=== PATIENT | female | born 2005 | race Caucasian/White ===

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

== ENCOUNTER 2023-05-14 20:31 | Emergency (ER) | payer MEDICAID, SELFPAY ==
--- NOTE | ~2023-05-14 | XR_ITS ---
EXAMINATION: XR ANKLE, LEFT CLINICAL INFORMATION: Fall with pain COMPARISON: None available. TECHNIQUE: AP, lateral, and mortise views of the left ankle. FINDINGS: There is a minimally displaced fracture at the base of the fifth metatarsal. No other abnormalities are seen. XR/XR ankle LT min 3V IMPRESSION: Fracture base of fifth metatarsal.
[2023-05-14 21:32] VITALS: BP 172/96; PULSE 63; O2SAT 98
[2023-05-14 21:37] VITALS: BP 141/81; PULSE 72; RESP 16; TEMP 37.1; O2SAT 99; BMI 57.3
--- NOTE | 2023-05-14 21:59 | ED.LOWEXIN ---
HPI - Extremity Injury (Lower) General Chief Complaint: Extremity Injury, Lower Stated Complaint: L ANKLE TWISTED Time Seen by Provider: 05/14/23 21:48 Source: patient Mode of arrival: ambulatory Limitations: no limitations History of Present Illness HPI Narrative: inversion injury of L foot after missed step no other injuries just occurred no prior injuries to this leg hurts to bear weight no numbness, tingling MD complaint: ankle injury and foot injury Onset (ago): minute(s) (prior to arrival ) Injury: Left: foot Type of Injury: inversion Place: home Severity: mild Relieving factors: immobilization Exacerbating factors: weight bearing and movement Context: other (missed step) Associated symptoms: snap/pop sensation and swelling Other symptoms: none Treatments prior to arrival: cold therapy Related Data Allergies Allergy/AdvReac Type Severity Reaction Status Date / Time amoxicillin Allergy Hives Verified 05/14/23 21:50 shrimp Allergy Hives Verified 05/14/23 21:50 Review of Systems Review of Systems: Constitutional : No Fever, No Chills Cardiovascular : No Chest Pain, No SOB Respiratory : No Cough, No Dyspnea Gastrointestinal : No Nausea, No Vomiting, No Diarrhea, No abdominal Pain Genitourinary : No Dysuria, No Hematuria Musculoskeletal : positive joint pain, No Myalgias, No Joint Swelling Skin : No Skin lacerations, No rash Neuro : No Weakness, No Numbness, No Loss of Consciousness All other systems reviewed and are negative [facility] Past Medical History Attestation statement: The following information was validated with the patient. Medical History Hypertension Social History Social History Alcohol intake: never Smoked in Last 30 Days: No Use of substances other than those prescribed or required for medical reasons: Yes Substance Use Type: Marijuana Advance Directives: No Advance Directives Information Provided: No Patient : No Physical Exam Vital Signs: Vital Signs: Last Vital Signs Temp 98.8 F 05/14/23 21:37 Pulse 72 05/14/23 21:37 Resp 16 05/14/23 21:37 BP 141/81 H 05/14/23 21:37 Pulse Ox 99 05/14/23 21:37 O2 Del Method Room Air 05/14/23 21:37 BMI result Body Mass Index 57.3 Appearance: Alert. Oriented X3. No acute distress. Eyes: Pupils equal, round and reactive to light. ENT: Pharynx normal. Neck: Normal inspection. Neck supple. CVS: Normal heart rate and rhythm. Pulses normal. Respiratory: No respiratory distress. Breath sounds normal. Abdomen: Soft and nontender. Skin: Skin warm and dry. Normal skin color. Normal skin turgor. Extremities: No lower extremity edema. L foot ttp along 5th metatarsal distal NV intact BCR 2+ DP pulse, SILT intact, no prox fibula ttp, mild swelling, superficial abrasion but minor Neuro: Oriented X 3. No motor deficit. No sensory deficit. Medical Decision Making Medical Decision Making MDM Narrative: 17 yo female L foot injury after missing step she is NV intact compartment soft and compressible tissue is intact at this time 5th metatarsal injury noted no prior injuries to this foot - crutches short posterior splint and orthopedics follow up, NWB Differential Diagnosis Differential Diagnoses: The differential diagnosis associated with the presentation includes sprain, strain, fracture Independent Interpretation I performed an independent interpretation of an: Plain X-Ray (5ht metatarsal fracture) Radiology Impression Discussion of test interpretation with radiology: I have reviewed the radiologist's reading. Procedures Orthopedic Splinting/Casting Injury #1: Side: left Lower Extremity Injury Location: foot Lower Extremity Immobilizer: posterior splint Other Orthopedic Equipment: crutches Discharge Plan Discharge Clinical Impression: Fracture of 5th metatarsal Patient Disposition: Home, Self-Care Instructions: Crutch Instructions (ED), Foot Fracture in Adults (ED) Additional Instructions: return for worsening symptoms such as numbness, severe pain, cold blue feet or any other concerns. keep elevated and remember to try to squeeze your calf muscles - non weight bearing until cleared by orthopedics. call for follow up appointment. take tylenol or motrin for pain can alternate Referrals: Get Malloy MD [Physician] - 1 week (call to schedule appointment ) Stand Alone Forms: Work/School Release Interventions: ED Discharge Assessment Last Done: 05/14/23 23:03 Discharge Date/Time: 05/14/23 23:04 Print Language: Mexican
== END 2023-05-14 23:04 | disposition home or self-care (01) ==
PROVIDERS: Emergency Provider Emergency Medicine
DX: S92.352A Displaced fracture of fifth metatarsal bone, left foot, initial encounter for closed fracture (principal); X50.1XXA Overexertion from prolonged static or awkward postures, initial encounter; Y93.89 Activity, other specified; Y92.018 Other place in single-family (private) house as the place of occurrence of the external cause; Y99.9 Unspecified external cause status
CPT/HCPCS: 29515; 73610; 99284

== ENCOUNTER 2023-05-21 08:26 | Outpatient (REF) | payer MEDICAID, SELFPAY ==
--- NOTE | ~2023-05-21 | XR_ITS ---
EXAMINATION: XR FOOT, LEFT CLINICAL INFORMATION: Pain in unspecified foot COMPARISON: None available. TECHNIQUE: AP, lateral, and oblique views of the left foot. FINDINGS: There is mild soft tissue swelling of the dorsum of the forefoot. The bones are intact. No fracture. Alignment is anatomic. Joint spaces are maintained. XR/XR foot LT min 3V IMPRESSION: No bony abnormality.
== END 2023-05-21 08:27 | disposition home or self-care (01) ==
LOC: HO.HOSX 08:26
PROVIDERS: Visit Provider Physician Assistant
DX: S92.355A Nondisplaced fracture of fifth metatarsal bone, left foot, initial encounter for closed fracture (principal)
CPT/HCPCS: 73630; 99204

== ENCOUNTER 2023-05-21 11:01 | Outpatient (AMB) | payer MEDICAID, SELFPAY ==
--- NOTE | 2023-05-21 11:04 | A.OFFVIS_ITS ---
Intake Vital Signs 05/21/23 11:05 Height 5 ft 4 in Weight 333 lb BMI 57.2 Intake Visit Reasons: fc- Fracture of 5th left metatarsal Intake Note: Daisy is a 17 year old female who presents today with her mom for a fracture care appointment for her left 5th metatarsal fx, DOI 05/14/23. Patient reports she slipped on the last step of her home having her to twist her left foot. She states that her pain is a 3/10on the pain scale. Having numbness on her pinky toe. Allergies amoxicillin Allergy (Verified 05/21/23 11:05) Hives shrimp Allergy (Verified 05/21/23 11:05) Hives HPI fc- Fracture of 5th left metatarsal HPI Details 17-year-old female who presents in the office today, as a new patient, for an evaluation of left foot pain. The patient presented to the ED on 05/14/2023 status post missing a step at home causing her to twist her left ankle. X-rays of the left foot were obtained. She was placed in a posterior splint and given crutches. She states she feels it has gotten a little better. She claims her pain is a 3/10 while in the office today. She confirms numbness in the little toe. Patient is accompanied in the office today by a family member. Patient works at [employer]. She states she works on her feet the entire shift. 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 Review of Systems Const All systems reviewed & are unremarkable except as noted in HPI and below Physical Exam Vital Signs: BMI result Body Mass Index 57.2 Const General: cooperative and no acute distress Orientation/consciousness: patient oriented x3 Resp Effort & Inspection: normal respiratory effort and able to speak in complete sentences Cardio Rate: regular rate Peripheral pulses: Peripheral pulses 2+ throughout GI Palpation (GI): Soft to palpation Skin General skin exam: no rashes or lesions noted Lesions: no lesions Rashes: no rashes Neuro General: patient oriented x3 Extrem Other: Left foot: Mild edmea on the lateral aspect of the left foot. Tenderness palpation at the base of the 5th metatarsal at the fracture site location. Office Procedures Fracture Care Fracture Billing Code: Fracture Billing Code Assessment & Plan Assessment & Plan (1) Closed nondisplaced fracture of fifth left metatarsal bone: Code(s): S92.355A - Nondisplaced fracture of fifth metatarsal bone, left foot, initial encounter for closed fracture Plan Ms. Stevenson is a 17-year-old female who presents in the office today, as a new patient, for an evaluation of left foot pain. The patient presented to the ED on 05/14/2023 status post missing a step at home causing her to twist her left ankle. X-rays of the left foot were obtained. She was placed in a posterior splint and given crutches. She states she feels it has gotten a little better. She claims her pain is a 3/10 while in the office today. She confirms numbness in the little toe. Patient works at [employer]. She states she works on her feet the entire shift. The patient will be transitioned to a short walking boot, off the shelf, while in the office today. She may weight bear as tolerated. She can come out of the boot while at home. She was instructed to elevate the foot and ice as much as possilbe. She was given an out of work until follow up. Follow up will be in 2 weeks with repeat x-rays, or sooner if needed. X-rays of the left foot/ which were obtained while in the office today and were reviewed by me, Ally Walters PA-C, redemonstrated a base of the 5th metatarsal fracture. X-rays of the left foot, obtained on 05/14/2023, revealed: Fracture base of fifth metatarsal. Orders: Orders XR foot LT min 3V Today M79.673 - Pain in unspecified foot Patient Instructions: Scribed for Ally Walters PA-C by darrel Pineda scribe, on 05/21/2023 at 11:03 am, EST. Coding Level of Care Code New Pt Level 4 (69682) Diagnoses Closed nondisplaced fracture of fifth left metatarsal bone S92.355A CPT Codes Fracture Care - Fracture Billing Code: Fracture Billing Code ([id number])
[2023-05-21 11:05] VITALS: BMI 57.2
== END 2023-05-21 11:47 | disposition home or self-care (01) ==
PROVIDERS: Visit Provider Physician Assistant
DX: S92.355A Nondisplaced fracture of fifth metatarsal bone, left foot, initial encounter for closed fracture (principal)
CPT/HCPCS: 99204

== ENCOUNTER 2023-06-07 07:32 | Outpatient (REF) | payer MEDICAID, SELFPAY ==
--- NOTE | ~2023-06-07 | XR_ITS ---
EXAMINATION: XR FOOT, LEFT CLINICAL INFORMATION: Pain. COMPARISON: None available. TECHNIQUE: AP, lateral, and oblique views of the left foot. FINDINGS: The bones and soft tissues are normal. No fracture. Alignment is anatomic. Joint spaces are maintained. XR/XR foot LT min 3V IMPRESSION: Normal left foot.
== END 2023-06-07 07:33 | disposition home or self-care (01) ==
LOC: HO.HOSX 07:32
PROVIDERS: Visit Provider Physician Assistant
DX: S92.355D Nondisplaced fracture of fifth metatarsal bone, left foot, subsequent encounter for fracture with routine healing (principal)
CPT/HCPCS: 73630; 99212

== ENCOUNTER 2023-06-07 10:58 | Outpatient (AMB) | payer MEDICAID, SELFPAY ==
--- NOTE | 2023-06-07 11:07 | A.OFFVIS_ITS ---
Intake Vital Signs 06/07/23 11:11 Height 5 ft 4 in Weight 333 lb BMI 57.2 Intake Visit Reasons: OV- left 5th metatarsal fx, DOI 05/14/23 Intake Note: Daisy is a 17 year old female who presents today with her mom for appointment a follow up visit for her left 5th metatarsal fx, DOI 05/14/23. Patient reports no pain or discomfort at the moment. She states some discomfort when she over works it. Allergies amoxicillin Allergy (Verified 06/07/23 11:11) Hives shrimp Allergy (Verified 06/07/23 11:11) Hives HPI OV- left 5th metatarsal fx, DOI 05/14/23 HPI Details 17-year-old female who presents in the office today for a follow up of a left 5th metatarsal fracture, which occurred on 05/14/2023 status post missing a step at home causing her to twist her left ankle. The patient reports no pain or discomfort while in the office today. She states she gets mild discomfort when over working the left foot. Patient works at [employer]. 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 No ecchymosis, erythema, or edema. No tenderness to palpation base of the fifth metatarsal. Full ROM in all planes. NVI. Assessment & Plan Assessment & Plan (1) Closed nondisplaced fracture of fifth left metatarsal bone: Code(s): S92.355A - Nondisplaced fracture of fifth metatarsal bone, left foot, initial encounter for closed fracture Plan Ms. Stevenson is a 17-year-old female who presents in the office today for a follow up of a left 5th metatarsal fracture, which occurred on 05/14/2023 status post missing a step at home causing her to twist her left ankle. The patient r eports no pain or discomfort while in the office today. She states she gets mild discomfort when over working the left foot. Patient works at [employer]. The patient will being to wean out of the walking boot over the next week. She may return to work with the restrictions of the walking boot for the first week. I instructed she should have the use of a stool for the first 2 weeks. 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 Follow up will be in 4 weeks for a ROM check and final x-ray, or sooner if needed. X-rays of the left foot which were obtained while in the office today and were reviewed by me, Ally Walters PA-C, revealed routine healing of a 5th metatarsal fracture. Orders: Orders XR foot LT min 3V Today M79.673 - Pain in unspecified foot Patient Instructions: Scribed for Ally Walters PA-C by Niya Thomas bilingual medical receptionist, on 06/07/2023 at 11:00 am, EST. Coding Level of Care Code Global (81551) Diagnoses Closed nondisplaced fracture of fifth left metatarsal bone S92.355A
[2023-06-07 11:11] VITALS: BMI 57.2
== END 2023-06-07 11:58 | disposition home or self-care (01) ==
PROVIDERS: Visit Provider Physician Assistant
DX: S92.355D Nondisplaced fracture of fifth metatarsal bone, left foot, subsequent encounter for fracture with routine healing (principal)
CPT/HCPCS: 99214

== ENCOUNTER 2023-07-05 10:01 | Outpatient (REF) | payer MEDICAID, SELFPAY | END 2023-07-05 10:02 | disposition home or self-care (01) | LOC: HO.HOSX 10:01 | PROVIDERS: Visit Provider Physician Assistant | DX: S92.355D Nondisplaced fracture of fifth metatarsal bone, left foot, subsequent encounter for fracture with routine healing (principal); X58.XXXD Exposure to other specified factors, subsequent encounter | CPT/HCPCS: 73630; 99212 ==

== ENCOUNTER 2023-07-05 10:15 | Outpatient (AMB) | payer MEDICAID, SELFPAY ==
--- NOTE | 2023-07-05 10:34 | MHC.OFFVIS ---
Intake Vital Signs 07/05/23 10:36 Height 5 ft 4 in Weight 333 lb BMI 57.2 Intake Visit Reasons: OV- left 5th metatarsal fx, DOI 05/14/23 Intake Note: Daisy is a 18 year old female who presents today with her mom for a follow up visit of her left 5th metatarsal fx, DOI 05/14/23. Patient reports off and on discomfort. Patient reports she is feeling better than before. Allergies amoxicillin Allergy (Verified 07/05/23 10:34) Hives shrimp Allergy (Verified 07/05/23 10:34) Hives HPI OV- left 5th metatarsal fx, DOI 05/14/23 HPI Details 18-year-old female who presents in the office today for a follow up of a left 5th metatarsal fracture, which occurred on 05/14/2023 status post missing a step at home causing her to twist her left ankle. The patient reports intermittent discomfort, which increases when ambulating stairs. She states she has been feeling better. 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 No ecchymosis, erythema, or edema. Patient is able to demonstrate dorsiflexion, plantar flexion, pronation and supination. Negative anterior drawer. No tenderness to palpation over the base of the 5th metatarsal at the fracture site. Sensation intact. Pedal Pulse intact. Assessment & Plan Assessment & Plan (1) Closed nondisplaced fracture of fifth left metatarsal bone: Code(s): S92.355A - Nondisplaced fracture of fifth metatarsal bone, left foot, initial encounter for closed fracture Qualifiers: Encounter type: subsequent encounter Fracture healing: with routine healing Qualified Code(s): S92.355D - Nondisplaced fracture of fifth metatarsal bone, left foot, subsequent encounter for fracture with routine healing Plan Ms. Stevenson is a 18-year-old female who presents in the office today for a follow up of a left 5th metatarsal fracture, which occurred on 05/14/2023 status post missing a step at home causing her to twist her left ankle. The patient reports intermittent discomfort, which increases when ambulating stairs. She states she has been feeling better. The patient may return to normal activities as tolerated. Follow up will be PRN, or sooner if needed. X-rays of the left foot obtained while in the office today and reviewed by me, Ally Walters PA-C, revealed a fracture on 5th metatarsal that is healed. Orders: Orders XR foot LT min 3V Today M79.673 - Pain in unspecified foot Patient Instructions: Scribed for Ally Walters PA-C by Niya Thomas medical transcription radiology, on 07/05/2023 at 10:25 am, EST. Coding Level of Care Code Est Pt Level 3 (88845) Diagnoses Closed nondisplaced fracture of fifth metatarsal bone of left foot with routine healing, subsequent encounter S92.355D Encounter type: subsequent encounter Fracture healing: with routine healing
[2023-07-05 10:36] VITALS: BMI 57.2
== END 2023-07-05 10:43 | disposition home or self-care (01) ==
PROVIDERS: Visit Provider Physician Assistant
DX: S92.355D Nondisplaced fracture of fifth metatarsal bone, left foot, subsequent encounter for fracture with routine healing (principal)
CPT/HCPCS: 99213

== ENCOUNTER 2023-08-24 11:13 | Outpatient (REF) | payer MEDICAID, SELFPAY ==
--- NOTE | ~2023-08-24 | XR_ITS ---
EXAMINATION: XR FOOT, LEFT CLINICAL INFORMATION: Pain. COMPARISON: Prior radiographs, most recently 06/27/2023. TECHNIQUE: AP, lateral, and oblique views of the left foot. FINDINGS: Bony alignment and mineralization are normal. A minimal avulsion fragment is again seen arising from the lateral aspect of the cuboid. No dislocation or left ankle joint effusion is seen. Boehler's angle is normal. There is a tiny posterior calcaneal spur. There is mild spurring of the dorsal talus. No focal soft tissue swelling, gas or foreign body is seen. XR/XR foot LT min 3V IMPRESSION: 1. A minimal avulsion fragment again arises from the lateral margin of the cuboid, possibly chronic. 2. There is a tiny posterior calcaneal spur. 3. There is mild degenerative change of the dorsal talus.
== END 2023-08-24 11:14 | disposition home or self-care (01) ==
LOC: HO.HOSX 11:13
PROVIDERS: Visit Provider Physician Assistant
DX: G57.92 Unspecified mononeuropathy of left lower limb (principal)
CPT/HCPCS: 73630; 99212

== ENCOUNTER 2023-08-24 12:45 | Outpatient (AMB) | payer MEDICAID, SELFPAY ==
[2023-08-24 12:58] VITALS: BMI 57.2
--- NOTE | 2023-08-24 12:58 | A.OFFVIS_ITS ---
Intake Vital Signs 08/24/23 12:58 Height 5 ft 4 in Weight 333 lb BMI 57.2 Intake Visit Reasons: OV-left 5th metatarsal fx, DOI 05/14/23 Intake Note: Daisy is a 18 year old female who presents today with her mom for a follow up visit of her left 5th metatarsal fx, DOI 05/14/23. Patient reports she is having a tingling sensation and pain on the lateral aspect of the foot when she is standing for a long time. Allergies amoxicillin Allergy (Verified 08/24/23 13:00) Hives shrimp Allergy (Verified 08/24/23 13:00) Hives HPI OV-left 5th metatarsal fx, DOI 05/14/23 HPI Details 18-year-[facility] a follow up of a left 5th metatarsal fracture, which occurred on 05/14/2023 status post missing a step at home causing her to twist her left ankle. While in the office today the patient reports a tingling sensation and pain on the lateral aspect of the left foot when she is standing for long periods of time. 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 No ecchymosis, erythema, or edema. No tenderness to palpation over the base of the 5th metatarsal. No tenderness to palpation over the medial or lateral malleolus over the SOPHIA or deltoid. Able to performed full dorsiflexion, plantarflexion, pronation, and supination without discomfort. Reports numbness and tingling sensations involving the entire foot on the plantar and dorsal aspect, intermittently. She also reports lower back pain. Assessment & Plan Assessment & Plan (1) Neuropathy of left foot: Code(s): G57.92 - Unspecified mononeuropathy of left lower limb Plan Ms. Stevenson is a 18-year-old female who presents in the office today for a follow up of a left 5th metatarsal fracture, which occurred on 05/14/2023 status post missing a step at home causing her to twist her left ankle. While in the office today the patient reports a tingling sensation and pain on the lateral aspect of the left foot when she is standing for long periods of time. I have placed a referral for the patient to be seen by Physiatry for further evaluation and treatment of possible neuropathy verses lower back complications. Follow up will be PRN with orthopedics, or sooner if needed. X-rays of the left ankle which were obtained while in the office today and were reviewed by me, Ally Walters PA-C, revealed no acute fracture or dislocation. Orders: Orders XR foot LT min 3V Today M79.673 - Pain in unspecified foot Patient Instructions: Scribed for Ally Walters PA-C by Niya Thomas medical claims assistant, on 08/24/2023 at 12:47 pm, EST. Coding Level of Care Code Est Pt Level 3 (17584) Diagnoses Neuropathy of left foot G57.92
== END 2023-08-24 13:16 | disposition home or self-care (01) ==
PROVIDERS: Visit Provider Physician Assistant
DX: G57.92 Unspecified mononeuropathy of left lower limb (principal)
CPT/HCPCS: 99213

== ENCOUNTER 2023-09-24 14:14 | Outpatient (REF) | payer MEDICAID, SELFPAY ==
[2023-09-24 16:32] LABS: Anion Gap 14 (12-20); Blood Urea Nitrogen 10 mg/dL (9-16); Calcium 9.6 mg/dL (8.4-10.2); Carbon Dioxide 25 mmol/L (22-29); Chloride 108 mmol/L (96-108); Estimated Glomerular Filt Rate > 60; Glucose Random 81 mg/dL (60-115); Magnesium 2.4 mg/dL (1.6-2.6); Sodium 143 mmol/L (135-145)
[2023-09-24 17:22] LABS: Erythrocyte Sedimentation Rate 34 MM/HR (0-20)
[2023-09-26 12:03] LABS: Anti Nuclear Antibody Screen NEGATIVE (NEGATIVE)
== END 2023-09-24 14:15 | disposition home or self-care (01) ==
LOC: HO.CHCLDS 14:14
PROVIDERS: Visit Provider Internal Medicine
DX: R53.1 Weakness (principal); R19.7 Diarrhea, unspecified
CPT/HCPCS: 36415; 80048; 83735; 85652; 86038

== ENCOUNTER 2023-09-25 11:03 | Outpatient (REF) | payer MEDICAID, SELFPAY ==
[2023-09-25 13:48] LABS: CDiff Gene PCR NEGATIVE (Negative)
[2023-09-25 13:57] LABS: Adenovirus F 40/41 Not Detected (Not Detect.); Astrovirus Not Detected (Not Detect.); Campylobacter Not Detected (Not Detect.); Cryptosporidium Not Detected (Not Detect.); Cyclospora cayetanensis Not Detected (Not Detect.); E. coli EAEC Not Detected (Not Detect.); E. coli EPEC Not Detected (Not Detect.); E. coli ETEC Not Detected (Not Detect.); E. coli STEC Not Detected (Not Detect.); Entamoeba histolytica Not Detected (Not Detect.); Giardia lamblia Not Detected (Not Detect.); Norovirus GI/GII Not Detected (Not Detect.); Plesiomonas shigelloides Not Detected (Not Detect.); Rotavirus A Not Detected (Not Detect.); Salmonella Not Detected (Not Detect.); Sapovirus Not Detected (Not Detect.); Shigella sp./EIEC Not Detected (Not Detect.); Vibrio Not Detected (Not Detect.); Vibrio Cholerae Not Detected (Not Detect.); Yersinia enterocolitica Not Detected (Not Detect.)
== END 2023-09-25 11:04 | disposition home or self-care (01) ==
LOC: HO.HHCLNP 11:03
PROVIDERS: Visit Provider Emergency Medicine
DX: R19.7 Diarrhea, unspecified (principal)
CPT/HCPCS: 87177; 87209; 87338; 87493; 87507

== ENCOUNTER 2023-10-11 11:16 | Outpatient (AMB) | payer SELFPAY ==
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
[2023-10-11 11:22] VITALS: BMI 54.9
== END 2023-10-11 11:50 | disposition home or self-care (01) ==
PROVIDERS: Visit Provider Physical Medicine & Rehabilitation
DX: R20.2 Paresthesia of skin (principal); M79.18 Myalgia, other site; M54.50 Low back pain, unspecified; G89.29 Other chronic pain
CPT/HCPCS: 99204

== ENCOUNTER 2023-10-11 11:16 | Outpatient (REF) | payer OTHER, SELFPAY ==
[2023-10-13 08:44] LABS: DHEA Sulfate 212 mcg/dL (44-286); Follicle Stimulating Hormone 6.2 mIU/mL; HCG Tumor Marker <5 mIU/mL; Lutenizing Hormone 5.9 mIU/mL; Prolactin 4.8 ng/mL
[2023-10-19 01:13] LABS: Sex Hormone Binding Globulin 19 nmol/L (17-124); Testosterone-Albumin 4.2 g/dL (3.6-5.1); Testosterone-Bioavailable 11.2 ng/dL (0.5-8.5); Testosterone-Free 5.8 pg/mL (0.2-5.0); Testosterone-Total 33 ng/dL (2-45)
== END 2023-10-11 11:17 | disposition home or self-care (01) ==
LOC: HO.LAB 11:16
PROVIDERS: Registered Nurse; Visit Provider Physical Medicine & Rehabilitation
DX: N91.5 Oligomenorrhea, unspecified (principal); L68.0 Hirsutism; R20.2 Paresthesia of skin; M79.18 Myalgia, other site; M54.50 Low back pain, unspecified; G89.29 Other chronic pain
CPT/HCPCS: 36415; 82627; 83001; 83002; 83498; 84146; 84270; 84403; 84443; 84702; 99202

== ENCOUNTER 2023-11-15 16:03 | Outpatient (REF) | payer OTHER, SELFPAY ==
--- NOTE | ~2023-11-15 | US_ITS ---
EXAMINATION: US PELVIS CLINICAL INFORMATION: Irregular menstrual periods, abnormal uterine bleeding. COMPARISON: None available. TECHNIQUE: Ultrasound of the pelvis is performed using a transabdominal transducers along with Doppler. Patient declined transvaginal examination. FINDINGS: Very limited transabdominal examination secondary to patient body habitus and urinary bladder under distention. Patient declined transvaginal examination. The uterus is anteverted measuring 7.7 x 3.3 x 4.2 cm. No discrete uterine mass. The endometrium measures approximately 0.5 cm in thickness, although is not entirely well seen in this examination. Ovaries are symmetric in size with the right ovary measuring 3.4 x 2.8 x 2.6 cm (12.9 mL) and the left ovary measuring 3.6 x 2.5 x 2.6 cm (12.3 mL). No discrete ovarian or adnexal mass, although evaluation is limited as above. No significant amount of free fluid. US/US pelvic and transvaginal IMPRESSION: 1. Very limited examination as above. 2. No definite acute sonographic abnormalities. Consider further evaluation as clinically warranted.
== END 2023-11-15 16:04 | disposition home or self-care (01) ==
LOC: HO.US 16:03
PROVIDERS: Visit Provider Registered Nurse
DX: N95.1 Menopausal and female climacteric states (principal)
CPT/HCPCS: 76830; 76856

== ENCOUNTER 2023-11-27 08:08 | Outpatient (REF) | payer OTHER, SELFPAY ==
[2023-11-27 09:14] LABS: Estimated Average Glucose 85 mg/dL; Hemoglobin A1c % 4.6 % (<6.0)
[2023-11-27 09:56] LABS: Cortisol Random < 1.0 ug/dL
[2023-12-03 09:58] LABS: Aldosterone/Renin Ratio 2.9 Ratio (0.9-28.9); Plasma Renin Activity 1.02 ng/mL/h (0.25-5.82)
== END 2023-11-27 08:09 | disposition home or self-care (01) ==
LOC: HO.LAB 08:08
PROVIDERS: PCP Registered Nurse; Visit Provider Registered Nurse
DX: N91.3 Primary oligomenorrhea (principal)
CPT/HCPCS: 36415; 82088; 82533; 83036

== ENCOUNTER 2024-01-09 11:39 | Outpatient (REF) | payer OTHER, SELFPAY | END 2024-01-09 11:40 | disposition home or self-care (01) | LOC: HO.HHCL 11:39 | PROVIDERS: Visit Provider Emergency Medicine | DX: Z13.89 Encounter for screening for other disorder (principal) ==

== ENCOUNTER 2024-01-10 11:34 | Outpatient (REF) | payer OTHER, SELFPAY | END 2024-01-10 11:35 | disposition home or self-care (01) | LOC: HO.HHCLNP 11:34 | PROVIDERS: Visit Provider Emergency Medicine | DX: A04.8 Other specified bacterial intestinal infections (principal) | CPT/HCPCS: 87338 ==

== ENCOUNTER 2024-01-22 07:33 | Outpatient (REF) | payer OTHER, SELFPAY ==
--- NOTE | ~2024-01-22 | CT_ITS ---
EXAMINATION: CT head/brain wo IV con CLINICAL INFORMATION: Reason for Exam recurrent headaches, current diffuse headache started 2 days ago. COMPARISON: None. TECHNIQUE: Contiguous axial imaging was performed from the skull base to vertex without intravenous contrast. Sagittal and coronal reformatted images were obtained. This CT examination was performed using dose optimization techniques as appropriate, variously including the following: * Automated exposure control * Adjustment of mA and/or kV according to patient size (this includes techniques or standardized protocols for targeted exams where dose is matched to indication/reason for exam; i.e. extremities or head) Use of iterative reconstruction technique DLP: 952 mGy-cm FINDINGS: No acute osseous or soft tissue abnormality. The mastoid air cells and visualized portions of the paranasal sinuses are well aerated. There is no evidence of acute intracranial hemorrhage or territorial infarction. No abnormal mass effect or midline shift is seen. Dumont to white matter differentiation is well preserved. No extra-axial fluid collections are identified. No hydrocephalus. No significant volume loss. There is no abnormal attenuation within the brain parenchyma. CT/CT head/brain wo IV con IMPRESSION: No acute intracranial abnormality including hemorrhage, mass effect, hydrocephalus, or acute territorial edematous infarction.
== END 2024-01-22 07:34 | disposition home or self-care (01) ==
LOC: HO.CT 07:33
PROVIDERS: PCP Registered Nurse; Visit Provider Emergency Medicine
DX: R51.9 Headache, unspecified (principal)
CPT/HCPCS: 70450

== ENCOUNTER 2024-07-31 15:12 | Outpatient (REF) | payer OTHER, SELFPAY ==
[2024-07-31 17:02] LABS: MANUAL DIFF FLAG NO
[2024-07-31 17:08] LABS: Basophils Absolute Auto 0.1 X10*3/uL (0.0-0.2); Basophils Percent Auto 1.1 % (0-2); Eosinophils Absolute Auto 0.1 X10*3/uL (0.0-0.4); Eosinophils Percent Auto 0.7 % (0-4); Imm Gran Abs Auto 0.03 X10*3/uL (0.00-0.03); Imm Gran Pct Auto 0.3 % (0.0-0.4); Lymphocytes Percent Auto 31.2 % (20-40); Mean Corpuscular HGB Conc 33.3 g/dl (31.0-35.0); Mean Corpuscular Hemoglobin 29.4 pg (27.0-33.0); Mean Corpuscular Volume 88.2 fL (80.0-98.0); Monocytes Absolute Auto 0.5 X10*3/uL (0.1-1.2); Monocytes Percent Auto 5.3 % (2-11); Neutrophils Absolute Auto 5.9 x10*3/uL (2.0-8.3); Neutrophils Percent Auto 61.4 % (45-73); Platelet Count 321 X10*3/uL (160-400); Red Blood Count 4.42 X10*6/uL (4.20-5.50); Red Cell Distribution Width 12.5 % (11.0-16.0); White Blood Count 9.6 X10*3/uL (4.8-10.8)
[2024-07-31 17:39] LABS: Alanine Aminotransferase 17 U/L (0-31); Albumin Level 4.3 g/dL (3.5-5.0); Alkaline Phosphatase 78 U/L (39-117); Anion Gap 12 (12-20); Aspartate Amino Transferase 28 U/L (5-31); Bilirubin Total 0.4 mg/dL (0.0-1.0); Blood Urea Nitrogen 13 mg/dL (9-16); Calcium 9.7 mg/dL (8.4-10.2); Carbon Dioxide 25 mmol/L (22-29); Chloride 108 mmol/L (96-108); Cholesterol 157 mg/dL (<200); Estimated Glomerular Filt Rate > 60; Glucose Random 84 mg/dL (60-115); HDL Cholesterol 46 mg/dL (>40); LDL Cholesterol Calculated 86 mg/dL (<100); Potassium 4.2 mmol/L (3.3-5.1); Sodium 141 mmol/L (135-145); Total Protein 7.6 g/dL (6.5-8.0); Triglycerides 129 mg/dL (<150)
[2024-07-31 17:41] LABS: Estimated Average Glucose 91 mg/dL; Hemoglobin A1C 125.9906 umol/L; Hemoglobin A1c % 4.8 % (<6.0); Total Hemoglobin (HGBA1C) 4300.5849 umol/L
[2024-07-31 17:46] LABS: TSH reflex Free T4 0.94 uIU/mL (0.32-4.0)
== END 2024-07-31 15:13 | disposition home or self-care (01) ==
LOC: HO.HHCL 15:12
PROVIDERS: Visit Provider Nurse Practitioner Family
DX: Z00.00 Encounter for general adult medical examination without abnormal findings (principal)
CPT/HCPCS: 36415; 80053; 80061; 83036; 84443; 85025

== ENCOUNTER 2025-05-24 15:20 | Emergency (ER) | payer MEDICAID, SELFPAY ==
[2025-05-24 15:26] VITALS: BP 142/74; PULSE 67; RESP 17; TEMP 36.5; O2SAT 97; BMI 50.1
--- NOTE | 2025-05-24 15:27 | ED.GENADULT ---
HPI - General Adult General Chief complaint: General Medical Stated complaint: abd & neck pain Related Data Home Medications ?Medication ?Instructions ?Recorded ?Confirmed ibuprofen 800 mg tablet 800 mg PO Q8H PRN pain 05/21/23 bismuth subsalicylate 262 mg 524 mg PO Q30M PRN 10/11/23 tablet ([place] Bismuth) metronidazole 250 mg tablet 250 mg PO TID 10/11/23 Allergies Allergy/AdvReac Type Severity Reaction Status Date / Time amoxicillin Allergy Hives Verified 05/24/25 15:29 shrimp Allergy Hives Verified 05/24/25 15:29 [facility] Past Medical History Medical History Hypertension Social History Social History Alcohol intake: never Substance Use Type: Marijuana Advance Directives: No Advance Directives Information Provided: No Do you have a plan to hurt others: No Plan Current occupational status: employed 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 Please refer to detailed history, exam, evaluation, and management by primary provider. Abdominal pain, nausea sore throat. No sick contacts. JS Medical Decision Making Lab Data 05/24/25 15:45 05/24/25 15:45 Labs: Lab Results 05/24/25 Range/Units 15:45 WBC 9.2 (4.8-10.8) X10*3/uL RBC 4.13 L (4.20-5.50) X10*6/uL Hgb 12.2 (12.0-16.0) g/dl Hct 36.1 L (37.0-47.0) % MCV 87.4 (80.0-98.0) fL MCH 29.5 (27.0-33.0) pg MCHC 33.8 (31.0-35.0) g/dl RDW 12.9 (11.0-16.0) % Plt Count 265 (160-400) X10*3/uL MPV 10.5 (9.4-12.3) fL Immature Gran % (Auto) 0.1 (0.0-0.4) % Neut % (Auto) 62.4 (45-73) % Lymph % (Auto) 30.3 (20-40) % [place] % (Auto) 6.0 (2-11) % Eos % (Auto) 0.3 (0-4) % Baso % (Auto) 0.9 (0-2) % Lymph # (Auto) 2.8 (1.2-4.9) X10*3/uL [place] # (Auto) 0.6 (0.1-1.2) X10*3/uL Eos # (Auto) 0.0 (0.0-0.4) X10*3/uL Baso # (Auto) 0.1 (0.0-0.2) X10*3/uL Abs Immat Gran (auto) 0.01 (0.00-0.03) X10*3/uL Absolute Neuts (auto) 5.7 (2.0-8.3) x10*3/uL Absolute Nucleated RBC 0.000 (0.0-0.012) X10*3/uL Nucleated RBC % (auto) 0.0 (0.0-0.2) /100WBC Sodium 144 (135-145) mmol/L Potassium 3.8 (3.3-5.1) mmol/L Chloride 110 H (96-108) mmol/L Carbon Dioxide 25 (22-29) mmol/L Anion Gap 13 (12-20) BUN 11 (9-16) mg/dL Creatinine 0.70 (0.5-1.4) mg/dL Estim Creat Clear Calc 172.2 Estimated GFR > 60 Random Glucose 87 (60-115) mg/dL Calcium 9.4 (8.4-10.2) mg/dL Total Bilirubin 0.7 (0.0-1.0) mg/dL AST 29 (5-31) U/L ALT 39 H (0-31) U/L Alkaline Phosphatase 78 (39-117) U/L Total Protein 6.8 (6.5-8.0) g/dL Albumin 4.4 (3.5-5.0) g/dL Lipase 20 (8-78) U/L Beta HCG, Quant < 2 mIU/mL Influenza Type A (PCR) NEGATIVE (Negative) Influenza Type B (PCR) NEGATIVE (Negative) RSV RNA Qual (PCR) NEGATIVE (Negative) SARS-CoV-2 RNA (RT-PCR) NEGATIVE (Negative) S. pyogenes GrpA IGOR Negative (Negative) Discharge Plan Discharge Clinical Impression: Abdominal pain Patient Disposition: Left W/O Completing Treatment Prescriptions: No Action ibuprofen 800 mg tablet 800 mg PO Q8H PRN (Reason: pain) metronidazole 250 mg tablet 250 mg PO TID [place] Bismuth 262 mg tablet 524 mg PO Q30M PRN Rx Instructions: do not exceed 8 doses in a 24 hour period Discharge Date/Time: 05/24/25 18:25
[2025-05-24 15:50] LABS: MANUAL DIFF FLAG NO
[2025-05-24 15:59] LABS: Hematocrit 36.1 % (37.0-47.0); Hemoglobin 12.2 g/dl (12.0-16.0); Imm Gran Abs Auto 0.01 X10*3/uL (0.00-0.03); Imm Gran Pct Auto 0.1 % (0.0-0.4); Lymphocytes Absolute Auto 2.8 X10*3/uL (1.2-4.9); Mean Corpuscular HGB Conc 33.8 g/dl (31.0-35.0); Mean Corpuscular Hemoglobin 29.5 pg (27.0-33.0); Mean Corpuscular Volume 87.4 fL (80.0-98.0); NRBC Abs Auto 0.000 X10*3/uL (0.0-0.012); NRBC Pct Auto 0.0 /100WBC (0.0-0.2); Platelet Count 265 X10*3/uL (160-400); Red Blood Count 4.13 X10*6/uL (4.20-5.50); White Blood Count 9.2 X10*3/uL (4.8-10.8)
[2025-05-24 16:03] LABS: IDNOW Serial# 55D5AD1C; Strep A Nucleic Acid Negative (Negative)
[2025-05-24 16:09] LABS: Alanine Aminotransferase 39 U/L (0-31); Albumin Level 4.4 g/dL (3.5-5.0); Alkaline Phosphatase 78 U/L (39-117); Anion Gap 13 (12-20); Aspartate Amino Transferase 29 U/L (5-31); Blood Urea Nitrogen 11 mg/dL (9-16); Calcium 9.4 mg/dL (8.4-10.2); Carbon Dioxide 25 mmol/L (22-29); Chloride 110 mmol/L (96-108); Creatinine Clr Calc Pharmacy 172.2; Estimated Glomerular Filt Rate > 60; Lipase 20 U/L (8-78); Potassium 3.8 mmol/L (3.3-5.1); Sodium 144 mmol/L (135-145); Total Protein 6.8 g/dL (6.5-8.0)
[2025-05-24 16:31] LABS: Resp Syncy Virus RNA Qual PCR NEGATIVE (Negative); SARS COV2 PCR INHOUSE NEGATIVE (Negative)
--- OUTSIDE RECORDS SUMMARY | 2025-05-24 17:38 | XMS_ITS | Clinical Summary ---
Author Organization [facility] Address [address] [place] [address] Phone Care Team Providers Care Neurology Technician Name Role Phone Kristofer Elmsford Primary Care Provider Allergies Active Allergy Reactions Criticality Noted Date Comments Amoxicillin Hives Medium 11/05/2024 Penicillins Hives Medium 11/05/2024 Shrimp Medium 11/04/2024 HIVES Medications omeprazole (PriLOSEC) [address] capsule Take 1 capsule (20 mg total) by mouth 1 (one) time each day for 14 days. Do not crush or chew. 14 each 04/10/2025 04/24/20 Active Problems Problem Noted Date Diagnosed Date Calculus of gallbladder with out cholecystitis without obstruction 02/06/2025 Encounters Date Type Department Care Team Description 04/10/2025 10:20 AM EDT - 04/10/2025 4:02 PM EDT Emergency [facility] Emergency [address] [place] [phone] Dakota Kenyon MD Nausea (Primary Dx) Discharge Disposition: Left Against Medical Advice 03/24/2025 1:00 PM EDT Office Visit General Surgery [facility] [address] [place] [phone] Yaw Guidry MD Calculus of gallbladder without cholecystitis without obstruction (Primary Dx) 03/22/2025 10:26 PM EDT - 03/23/2025 1:56 AM EDT Emergency [facility] Emergency [address] [place] [address] Acute nonintractable headache, unspecified headache type (Primary Dx); Dysuria Discharge Disposition: Home or Self Care 03/16/2025 11:45 AM EDT - 03/16/2025 1:30 PM EDT Surgery [facility] Main OR [address] [place] [address] Yaw Guidry MD LAPAROSCOPIC CHOLECYSTECTOMY [94309 (CPT )] 03/16/2025 11:34 AM EDT Anesthesia Event [facility] OR [address] [place] [phone] Jersey Lopez DO 03/16/2025 9:52 AM EDT - 03/16/2025 4:08 PM EDT Hospital Encounter [facility] Main OR [address] [place] [phone] Yaw Guidry MD Calculus of gallbladder without cholecystitis without obstruction Discharge Disposition: Home or Self Care 03/14/2025 10:00 AM EDT - 03/14/2025 2:30 PM EDT Emergency [facility] Emergency [address] [place] [address] Maria Del Rosario Moon MD Gallstones (Primary Dx) Discharge Disposition: Home or Self Care from Last 3 Months Medical History Medical History Date Comments Asthma as child/ no inh nayeli Hypertension Morbid obesity with body mas s index (BMI) of 50.0 to 59.9 in adult ([facility] V24, [facility] V28) Social History Tobacco Use Types Packs/Day Years Used Date Smoking Tobacco: Never Smokeless Tobacco: Never Tobacco Cessation:Counseling Given: Not Answered Alcohol Use Standard Drinks/Week Comments Never 0 (1 standard drink = 0.6 oz pur e alcohol) Comments No Sex and Gender Information Value Date Recorded Sex Assigned at Female 01/25/2025 1:43 PM EDT Legal Sex Female 10:42 AM EST Gender Identity Female 01/25/2025 1:43 PM EDT Sexual Orientation Straight 01/25/2025 1: 43 PM EDT Obstetrics History Last Filed Vital Signs Vital Sign Reading Time Taken Comments Blood Pressure 111/64 04/10/2025 2:11 PM EDT Pulse 64 04/10/2025 2:11 PM EDT Temperature 37.3 C (99.1 F) 04/10/2025 2:11 PM EDT Respiratory Rate 18 04/10/2025 2:11 PM EDT Oxygen Saturation 98% 04/10/2025 2:11 PM EDT Inhaled Oxygen Concentration - - Weight 141 kg (310 lb 8 oz) 04/10/2025 9:21 AM E DT Height 162.6 cm (5' 4 ) 04/10/2025 9:21 AM EDT Body Mass Index 53.3 04/10/2025 9:21 AM EDT Plan of Treatment Health Maintenance Due Date Last Done Comments Gonorrhea/Chlamydia Screening 2003 Meningococcal B Vaccine (1 of 2 - Standard) 2019 HIV Screening 09/11/2022 Hepatitis C Screening 09/11/2022 Social Influencers of Health Screening 09/11/2022 COVID-19 Vaccine ( season) 2024 10/20/2021, 02/28/2021, 02/07/2021 Cervical Cancer Screening: Pap Smear 2024 Depression Screening 10/08/2024 Influenza Vaccine (#1) 2025 , 07/19/2022, 07/14/2020, Additional history exists Annual Well Child Visit (3-21 years old) 07/29/2025 07/29/2024 Hypertension/CHF/CAD Annual BMP Blood Test 04/10/2026 04/10/2025, 03/22/2025, 03/14/2025, Additional history exists Cholesterol Screening (Lipid Panel) 07/31/2029 07/31/2024 DTaP,Tdap,and Td Vaccines (8 - Td or Tdap) 06/21/2032 06/21/2022, 12/29/2014, 05/11/2008, Additional history exists Hepatitis B Vaccines Completed 01/15/2004, 2003, 2003, Additional history exists HIB Vaccines Completed 12/13/2004, 06/2004, 2003, Additional history exists Pneumococcal Vaccine: Pediatrics (0 to 5 Years) and At-Risk Patients (6 to 49 Years) Completed 12/13/2004, 04/20/2004, 2003, Additional history exists MMR Vaccines Completed 02/27/2007, 07/26/2004 Varicella Vaccines Completed 02/27/2007, 07/26/2004 IPV Vaccines Completed 05/11/2008, 04/0 06/2004, 2003, Additional history exists Hepatitis A Vaccines Completed 07/26/2010, 05/11/20 08 HPV Vaccines Completed 07/06/2015, 02/06, 12/29/2014 Meningococcal ACWY Vaccine Completed 12/08/2019, RSV Immunization Patients Under 20 months Aged Out No longer eligible based on patient's age to complete this topic Procedures Procedure Name Priority Date/Time Associated Diagnosis Comments US ABDOMEN LIMITED STAT 04/10/2025 1:56 PM EDT POC , URINE DIAGNOSTIC STAT 04/10/2025 9:59 AM EDT CBC WITH AUTO DIFFERENTIAL STAT 04/10/2025 9:50 AM EDT COMPREHENSIVE METABOLIC PANEL STAT 04/10/2025 9:50 AM EDT CBC AND DIFFERENTIAL STAT 04/10/2025 9:50 AM EDT DUMONT URINE CULTURE TUBE STAT 04/10/2025 9:49 AM EDT URINALYSIS WITH REFLEX MICROSCOPIC AND CULTURE STAT 04/10/2025 9:49 AM EDT URINALYSIS WITH REFLEX MICROSCOPIC AND CULTURE STAT 04/10/2025 9:49 AM EDT [id number], RSV, FLU A AND B QUALITATIVE RT-PCR, INTERNAL LAB STAT 04/10/2025 9:42 AM EDT RESPIRATORY VIRUS PANEL MOLECULAR STUDY STAT 03/23/2025 12:02 AM EDT POC , URINE DIAGNOSTIC STAT 03/22/2025 10:51 PM EDT DUMONT URINE CULTURE TUBE STAT 03/22/2025 10:50 PM EDT URINALYSIS WITH REFLEX MICROSCOPIC AND CULTURE STAT 03/22/2025 10:50 PM EDT URINALYSIS WITH REFLEX MICROSCOPIC AND CULTURE STAT 03/22/2025 10:50 PM EDT CULTURE URINE STAT 03/22/2025 10:50 PM EDT CULTURE BLOOD STAT 03/22/2025 9:21 PM EDT CBC WITH AUTO DIFFERENTIAL STAT 03/22/2025 9:16 PM EDT LACTATE, WITH REFLEX STAT 03/22/2025 9:16 PM EDT LIPASE STAT 03/22/2025 9:16 PM EDT MAGNESIUM STAT 03/22/2025 9:16 PM EDT COMPREHENSIVE METABOLIC PANEL STAT 03/22/2025 9:16 PM EDT CBC AND DIFFERENTIAL STAT 03/22/2025 9:16 PM EDT CULTURE BLOOD STAT 03/22/2025 9:16 PM EDT OXYGEN THERAPY, ADULT Routine 03/16/2025 12:58 PM EDT TISSUE EXAM Routine 03/16/2025 12:27 PM EDT Calculus of gallbladder without cholecystitis without obstruction TH AN ENDOTRACHEAL(NO CHARGE) Routine 03/16/2025 11:48 AM EDT [place] LAPAROSCOPY SURGICAL CHOLECYSTECTOMY 03/16/2025 11:34 AM EDT Calculus of gallbladder without cholecystitis without obstruction Special Needs Laparoscopic cholecystectomy ? Open - asking 75 minutes for this case US ABDOMEN LIMITED STAT 03/14/2025 12:29 PM EDT LIPASE STAT 03/14/2025 12:05 PM EDT COMPREHENSIVE METABOLIC PANEL STAT 03/14/2025 12:05 PM EDT POC , URINE DIAGNOSTIC STAT 03/14/2025 12:04 PM EDT LACTATE, WITH REFLEX STAT 03/14/2025 10:23 AM EDT CBC WITH AUTO DIFFERENTIAL STAT 03/14/2025 10:19 AM EDT CBC AND DIFFERENTIAL STAT 03/14/2025 10:19 AM EDT from Last 3 Months Results * US Abdomen Limited (04/10/2025 1:56 PM EDT) Only the most recent of2 resultswithin the time period is included. Anatomical Region Laterality Modality Body Ultrasound 04/10/2025 2:10 PM EDT Impressions 04/10/2025 2:11 PM EDT 1. NO ACUTE FINDINGS. -------- FINAL REPORT -------- Dictated By: Bishop Cartagena Dictated Date: 04/10/2025 14:10 ET Assigned Physician: Bishop Cartagena Reviewed and Electronically Signed By: Bishop Cartagena Signed Date: 04/10/2025 14:11 ET Workstation ID: [id number] Transcribed By: Self Edit Transcribed Date: 04/10/2025 14:10 ET Narrative 04/10/2025 2:11 PM EDT Exam: US ABDOMEN LIMITED Date of Study: 04/10/2025 1:35 PM CLINICAL INFORMATION: pain TECHNIQUE: Real-time ultrasound scanning of the region of interest performed by the bi data modeler. Pharmacy District Manager static images and video clips are submitted for review. FINDINGS: IVC is unremarkable. Visualized pancreas is unremarkable. The liver measures 18.3 cm without visible mass. Normal directional flow within the portal vein. Status post cholecystectomy. The common bile duct measures 5 mm. There is absent sonographic Zuniga's sign. Right kidney measures 10.5 cm without evidence for mass or hydronephrosis. No ascites Procedure Note Bishop Cartagena MD - 04/10/2025 Exam: US ABDOMEN LIMITED Date of Study: 04/10/2025 1:35 PM CLINICAL INFORMATION: pain TECHNIQUE: Real-time ultrasound scanning of the region of interestperformed by the bi data modeler. Pharmacy District Manager static images and video clipsare submitted for review. FINDINGS: IVC is unremarkable. Visualized pancreas is unremarkable. The livermeasures 18.3 cm without visible mass. Normal directional flow within theportal vein. Status post cholecystectomy. The common bile duct measures5 mm. There is absent sonographic Zuniga's sign. Right kidney [id number] cm without evidence for mass or hydronephrosis. No ascites IMPRESSION: 1. NO ACUTE FINDINGS. -------- FINAL REPORT -------- Dictated By: Bishop Cartagena Dictated Date: 04/10/2025 14:10 ET Assigned Physician: Bishop Cartagena Reviewed and Electronically Signed By: Bishop Cartagena Signed Date: 04/10/2025 14:11 ET Workstation ID: [id number] Transcribed By: Self Edit Transcribed Date: 04/10/2025 14:10 ET us Dakota Kenyon MD IMG US PROCEDURES Final Result * POC , urine manually resulted (04/10/2025 9:59 AM EDT) Only the most recent of3 resultswithin the time period is included. HCG, Ur POC Negative Negative Urine Urine specimen obtained by clean catch procedure / Unknown 04/10/2025 9:59 AM EDT us Tyrel Bagley DO POINT OF CARE TEST ENTER/EDIT ORDERABLES Final Result * (ABNORMAL) CBC auto differential (04/10/2025 9:50 AM EDT) Only the most recent of3 resultswithin the time period is included. WBC 7.3 4.8 - 10.8 K/[facility] LAB HEMETOLOGY METHOD 04/10/2025 10:05 AM [facility] RBC 4.10 3.80 - 4.80 M/mcL LAB HEMETOLOGY METHOD 04/10/2025 10:05 AM [facility] Hemoglobin 11.8 11.5 - 16.0 g/dL LAB HEMETOLOGY METHOD 04/10/2025 10:05 AM [facility] Hematocrit 37.0 35.0 - 47.0 % LAB HEMETOLOGY METHOD 04/10/2025 10:05 AM [facility] MCV 90.9 79.0 - 98.0 FL LAB HEMETOLOGY METHOD 04/10/2025 10:05 AM [facility] MCH 29.0 27.0 - 32.0 pcg LAB HEMETOLOGY METHOD 04/10/2025 10:05 AM [facility] MCHC 31.9(L) 32.0 - 37.0 g/dL LAB HEMETOLOGY METHOD 04/10/2025 10:05 AM [facility] RDW 13.0 11.0 - 15.0 % LAB HEMETOLOGY METHOD 04/10/2025 10:05 AM [facility] Platelets 323 130 - 400 K/mcL LAB HEMETOLOGY METHOD 04/10/2025 10:05 AM [facility] MPV 10.4 7.0 - 11.0 FL LAB HEMETOLOGY METHOD 04/10/2025 10:05 AM [facility] NRBC 0.0 <1.0 % LAB HEMETOLOGY METHOD 04/10/2025 10:05 AM [facility] NRBC Absolute 0.00 <0.10 K/mcL LAB HEMETOLOGY METHOD 04/10/2025 10:05 AM [facility] Neutrophils Relative 59.9 % LAB HEMETOLOGY METHOD 04/10/2025 10:05 AM [facility] Lymphocytes Relative 32.1 % LAB HEMETOLOGY METHOD 04/10/2025 10:05 AM [facility] Monocytes Relative 6.4 % LAB HEMETOLOGY METHOD 04/10/2025 10:05 AM [facility] Eosinophils Relative 0.5 % LAB HEMETOLOGY METHOD 04/10/2025 10:05 AM [facility] Basophils Relative 1.0 % LAB HEMETOLOGY METHOD 04/10/2025 10:05 AM [facility] Immature Granulocytes Relative 0.1 % LAB HEMETOLOGY METHOD 04/10/2025 10:05 AM [facility] Neutrophils Absolute 4.36 1.50 - 7.00 K/mcL LAB HEMETOLOGY METHOD 04/10/2025 10:05 AM [facility] Lymphocytes Absolute 2.34 1.00 - 5.00 K/mcL LAB HEMETOLOGY METHOD 04/10/2025 10:05 AM [facility] Monocytes Absolute 0.47 0.20 - 1.00 K/mcL LAB HEMETOLOGY METHOD 04/10/2025 10:05 AM [facility] Eosinophils Absolute 0.04 0.00 - 0.50 K/mcL LAB HEMETOLOGY METHOD 04/10/2025 10:05 AM [facility] Basophils Absolute 0.07 0.00 - 0.20 K/mcL LAB HEMETOLOGY METHOD 04/10/2025 10:05 AM [facility] Immature Granulocytes Absolute 0.01 0.00 - 0.03 K/mcL LAB HEMETOLOGY METHOD 04/10/2025 10:05 AM [facility] Blood Venous blood specimen / Unknown Venipuncture / Unknown 04/10/2025 9:50 AM EDT 04/10/2025 10:01 AM EDT Tyrel Bagley DO LAB BLOOD ORDERABLES Final Res ult [facility] [address] [place] [address], [place] [phone] * (ABNORMAL) Comprehensive metabolic panel (04/10/2025 9:50 AM EDT) Only the most recent of3 resultswithin the time period is included. Sodium 141 133 - 145 mmol/L LAB CHEMISTRY METHOD 04/10/2025 10:39 AM [facility] Potassium 4.3 3.5 - 5.5 mmol/L LAB CHEMISTRY METHOD 04/10/2025 10:39 AM [facility] Chloride 111(H) 96 - 110 mmol/L LAB CHEMISTRY METHOD 04/10/2025 10:39 AM [facility] CO2 25 21 - 32 mmol/L LAB CHEMISTRY METHOD 04/10/2025 10:39 AM [facility] Anion Gap 5 3 - 11 LAB CHEMISTRY METHOD 04/10/2025 10:39 AM [facility] Glucose 97 70 - 100 mg/dL LAB CHEMISTRY METHOD 04/10/2025 10:39 AM [facility] BUN 16 5 - 25 mg/dL LAB CHEMISTRY METHOD 04/10/2025 10:39 AM [facility] Creatinine 0.71 0.50 - 1.10 mg/dL LAB CHEMISTRY METHOD 04/10/2025 10:39 AM [facility] eGFR 124 >=60 mL/min/1. 73m2 LAB CHEMISTRY METHOD 04/10/2025 10:39 AM [facility] Comment:Calculation based on the Chronic Kidney Disease Epidemiology Collaboration (CKD-EPI) equation refit without adjustment for race. BUN/Creatinine Ratio 22.5 LAB CHEMISTRY METHOD 04/10/2025 10:39 AM [facility] Calcium 8.9 8.5 - 10.5 mg/dL LAB CHEMISTRY METHOD 04/10/2025 10:39 AM [facility] AST (SGOT) 16 10 - 42 unit/L LAB CHEMISTRY METHOD 04/10/2025 10:39 AM [facility] ALT (SGPT) 22 10 - 60 unit/L LAB CHEMISTRY METHOD 04/10/2025 10:39 AM [facility] Alkaline Phosphatase 97 42 - 121 unit/L LAB CHEMISTRY METHOD 04/10/2025 10:39 AM T [facility] Total Protein 6.8 6.0 - 8.0 g/dL LAB CHEMISTRY METHOD 04/10/2025 10:39 AM [facility] Albumin 3.7 3.2 - 5.0 g/dL LAB CHEMISTRY METHOD 04/10/2025 10:39 AM [facility] Total Bilirubin 0.5 0.0 - 1.4 mg/dL LAB CHEMISTRY METHOD 04/10/2025 10:39 AM [facility] Blood Venous blood specimen / Unknown Venipuncture / Unknown 04/10/2025 9:50 AM EDT 04/10/2025 10:01 AM EDT us Tyrel Bagley DO LAB BLOOD ORDERABLES Final Res ult [facility] [address] [place] [address], * (ABNORMAL) Urinalysis with reflex microscopic and culture (04/10/2025 9:49 AM EDT) Only the most recent of2 resultswithin the time period is included. Specific [place] Urine 1.032(H) 1.003 - 1.030 LAB URINALYSIS - AUTOMATED METHOD 04/10/2025 10:09 AM [facility] pH, Urine 5.5 5.0 - 8.0 pH LAB URINALYSIS - AUTOMATED METHOD 04/10/2025 10:09 AM [facility] Leukocytes, Urine Negative Negative LAB URINALYSIS - AUTOMATED METHOD 04/10/2025 10:09 AM [facility] Nitrite, Urine Negative Negative LAB URINALYSIS - AUTOMATED METHOD 04/10/2025 10:09 AM [facility] Protein, Urine Trace <=Trace mg/dL LAB URINALYSIS - AUTOMATED METHOD 04/10/2025 10:09 AM [facility] Glucose, Urine Negative Negative mg/dL LAB URINALYSIS - AUTOMATED METHOD 04/10/2025 10:09 AM [facility] Ketones, Urine Trace(A) Negative mg/dL LAB URINALYSIS - AUTOMATED METHOD 04/10/2025 10:09 AM [facility] Urobilinogen, Urine 1.0 0.2 - 1.0 mg/dL LAB URINALYSIS - AUTOMATED METHOD 04/10/2025 10:09 AM [facility] Bilirubin, Urine Negative Negative LAB URINALYSIS - AUTOMATED METHOD 04/10/2025 10:09 AM [facility] Blood, Urine Large(A) Negative LAB URINALYSIS - AUTOMATED METHOD 04/10/2025 10:09 AM [facility] RBC, Urine 76.5(H) 0 - 4 /HPF LAB URINALYSIS - AUTOMATED METHOD 04/10/2025 10:09 AM [facility] WBC, Urine 4.4(H) 0 - 4 /HPF LAB URINALYSIS - AUTOMATED METHOD 04/10/2025 10:09 AM [facility] Squamous Epithelial, Urine >100(H) 0 - 60 /LPF LAB URINALYSIS - AUTOMATED METHOD 04/10/2025 10:09 AM [facility] Bacteria, Urine Negative Negative /HPF LAB URINALYSIS - AUTOMATED METHOD 04/10/2025 10:09 AM [facility] Hyaline Casts, Urine 1.2 0 - 3 /LPF LAB URINALYSIS - AUTOMATED METHOD 04/10/2025 10:09 AM EDT [facility] Urine Urine specimen obtained by clean catch procedure / Unknown Non-blood Collection / Unknown 04/10/2025 9:49 AM EDT 04/10/2025 10:00 AM EDT Tyrel Bagley DO LAB URINE ORDERABLES Final Res ult Performing Organization Address [facility]/ZIP Co de Phone Number [facility] [address] [place] [address], [place] [phone] * Dumont urine culture tube (04/10/2025 9:49 AM EDT) Only the most recent of2 resultswithin the time period is included. Extra Tube Hold for add-ons. 04/10/2025 11:01 AM EDT [facility] Comment:Auto resulted. Urine Urine specimen obtained by clean catch procedure / Unknown Non-blood Collection / Unknown 04/10/2025 9:49 AM EDT 04/10/2025 10:00 AM EDT us Tyrel Bagley DO LAB URINE ORDERABLES Final Res ult Performing Organization Address City/[facility]/ZIP Co de Phone Number [facility] [address] [place] [address], [place] [phone] * [id number], RSV, Influenza A and B qualitative RT-PCR (04/10/2025 9:42 AM EDT) Influenza A PCR Not Detected Not Detected LAB MICROBIOLOGY METHOD 04/10/2025 10:49 AM EDT [facility] Influenza B PCR Not Detected Not Detected LAB MICROBIOLOGY METHOD 04/10/2025 10:49 AM EDT [facility] RSV PCR Not Detected Not Detected LAB MICROBIOLOGY METHOD 04/10/2025 10:49 AM EDT [facility] SARS COV-2 Not Detected Not Detected LAB MICROBIOLOGY METHOD 04/10/2025 10:49 AM EDT [facility] Swab Both anterior nares / Unknown Non-blood Collection / Unknown 04/10/2025 9:42 AM EDT 04/10/2025 10:00 AM EDT Narrative [facility] - 04/10/2025 10:49 AM EDT Disclaimer: Testing was performed using the [employer] GeneXpert Xpress SARS-CoV-2 _Flu_RSV PLUS PCR assay. The manner in which this information is used to guide patient care is the responsibility of the healthcare provider. Results should be correlated with the clinical history, epidemiological data, and other data available to the clinician evaluating the patient. Negative results do not preclude infection. This test has been authorized by the FDA under an Emergency Use Authorization (EUA). This test is only authorized for the duration of time the declaration that circumstances exist justifying the authorization of the emergency use of in vitro diagnostic tests for detection of SARS-CoV-2 virus and/or diagnosis of COVID-19 infection under section 564 (b) (1) of the Act, 21 U.S.C 360bbb-3 (b) (1), unless the authorization is terminated or revoked sooner. Reference Range: Not Detected Fact sheet for Healthcare providers can be found at https://www.fda.gov/media/210562/download. Fact sheet for Healthcare patients can be found at https://www.fda.gov/media/237866/download. us Britta GUAMAN LAB MICROBIOLOGY - GENERAL ORD ERABLES Final Result [facility] [address] [place] [address], * Respiratory virus panel molecular study (03/23/2025 12:02 AM EDT) [facility] Adenovirus Detection by PCR Not Detected Not Detected LAB MICROBIOLOGY METHOD 03/23/2025 1:04 AM EDT [facility] Influenza A PCR Not Detected Not Detected LAB MICROBIOLOGY METHOD 03/23/2025 1:04 AM EDT [facility] Influenza B PCR Not Detected Not Detected LAB MICROBIOLOGY METHOD 03/23/2025 1:04 AM EDT [facility] Coronavirus 229E Not Detected Not Detected LAB MICROBIOLOGY METHOD 03/23/2025 1:04 AM EDT [facility] Coronavirus HKU1 Not Detected Not Detected LAB MICROBIOLOGY METHOD 03/23/2025 1:04 AM EDT [facility] Coronavirus OC43 Not Detected Not Detected LAB MICROBIOLOGY METHOD 03/23/2025 1:04 AM EDT [facility] Coronavirus NL63 Not Detected Not Detected LAB MICROBIOLOGY METHOD 03/23/2025 1:04 AM EDT [facility] Parainfluenza Virus 1 Not Detected Not Detected LAB MICROBIOLOGY METHOD 03/23/2025 1:04 AM EDT [facility] Parainfluenza Virus 2 Not Detected Not Detected LAB MICROBIOLOGY METHOD 03/23/2025 1:04 AM EDT [facility] Parainfluenza Virus 3 Not Detected Not Detected LAB MICROBIOLOGY METHOD 03/23/2025 1:04 AM EDT [facility] Parainfluenza Virus 4 Not Detected Not Detected LAB MICROBIOLOGY METHOD 03/23/2025 1:04 AM EDT [facility] RSV PCR Not Detected Not Detected LAB MICROBIOLOGY METHOD 03/23/2025 1:04 AM EDT [facility] Human Metapneumovirus A and B Not Detected Not Detected LAB MICROBIOLOGY METHOD 03/23/2025 1:04 AM EDT [facility] Rhinovirus/Entero virus Not Detected Not Detected LAB MICROBIOLOGY METHOD 03/23/2025 1:04 AM EDT [facility] Bordetella pertussis Not Detected Not Detected LAB MICROBIOLOGY METHOD 03/23/2025 1:04 AM EDT [facility] Bordetella parapertussis Not Detected Not Detected LAB MICROBIOLOGY METHOD 03/23/2025 1:04 AM EDT [facility] Mycoplasma pneumo by PCR Not Detected Not Detected LAB MICROBIOLOGY METHOD 03/23/2025 1:04 AM EDT [facility] Chlamydia pneumoniae Not Detected Not Detected LAB MICROBIOLOGY METHOD 03/23/2025 1:04 AM EDT [facility] SARS COV-2 Not Detected Not Detected LAB MICROBIOLOGY METHOD 03/23/2025 1:04 AM EDT [facility] Swab Both anterior nares / Unknown Non-blood Collection / Unknown 03/23/2025 12:02 AM EDT 03/23/2025 12:12 AM EDT Narrative [facility] - 03/23/2025 1:04 AM EDT Testing was performed using the [employer] app Respiratory Pathogen PCR Assay. All results must be correlated with the clinical findings. Results should not be used as the sole basis for diagnosis. False Negative results may occur from the presence of sequence variants in the region targeted by the assay or the presence of inhibitors. Results may be affected by concurrent antiviral/antimicrobial therapy or levels of organisms that are below the limit of detection. us Nicole GUAMAN LAB MICROBIOLOGY - GENERAL BOBBY WELDON Final Result [facility] [address] [place] [address], * Culture urine (03/22/2025 10:50 PM EDT) Culture, Urine No growth 03/24/2025 8:57 AM EDT [facility] Urine Urine specimen obtained by clean catch procedure / Unknown Non-blood Collection / Unknown 03/22/2025 10:50 PM EDT 03/22/2025 11:49 PM EDT Blayne Jones MD LAB MICROBIOLOGY - GENERAL ORDE RABLES Final Result Performing Organization Address [facility]/ZIP Co de Phone Number [facility] [address] [place] [address], * Blood culture (03/22/2025 9:21 PM EDT) Only the most recent of2 resultswithin the time period is included. Culture, Blood No growth at 5 days 03/27/2025 10:02 PM EDT [facility] [facility] Blood Venous blood specimen / Unknown Venipuncture / Unknown 03/22/2025 9:21 PM EDT 03/22/2025 9:37 PM EDT Blayne Jones MD LAB MICROBIOLOGY - [facility] Final Result Performing Organization Address [facility] Co de Phone Number [facility] [address] [place] [address], * Lactate, with reflex (03/22/2025 9:16 PM EDT) Only the most recent of2 resultswithin the time period is included. LACTIC ACID 1.1 0.4 - 2.0 mmol/L LAB CHEMISTRY METHOD 03/22/2025 10:01 PM EDT [facility] Blood Venous blood specimen / Unknown Venipuncture / Unknown 03/22/2025 9:16 PM EDT 03/22/2025 9:38 PM EDT Blayne Jones MD LAB BLOOD ORDERABLES Final Resu lt Performing Organization Address [facility]/ZIP Co de Phone Number [facility] [address] [place] [address], [place] [phone] * Magnesium (03/22/2025 9:16 PM EDT) Magnesium 2.2 1.9 - 2.6 mg/dL LAB CHEMISTRY METHOD 03/22/2025 10:01 PM EDT [facility] Blood Venous blood specimen / Unknown Venipuncture / Unknown 03/22/2025 9:16 PM EDT 03/22/2025 9:38 PM EDT us Blayne Jones MD LAB BLOOD ORDERABLES Final Resu lt Performing Organization Address [facility]/ZIP Co de Phone Number [facility] [address] [place] [address], [place] [phone] * Lipase (03/22/2025 9:16 PM EDT) Only the most recent of2 resultswithin the time period is included. Lipase 25 13 - 75 unit/L LAB CHEMISTRY METHOD 03/22/2025 10:01 PM EDT [facility] Blood Venous blood specimen / Unknown Venipuncture / Unknown 03/22/2025 9:16 PM EDT 03/22/2025 9:38 PM EDT us Blayne Jones MD LAB BLOOD ORDERABLES Final Resu lt Performing Organization Address [facility] de Phone Number [facility] [address] [place] [address], [place] [phone] * Tissue exam (03/16/2025 12:27 PM EDT) Final Diagnosis A. Gallbladder, cholecystectomy: - Chronic cholecystitis and cholelithiasis. - One benign lymph node. 03/17/2025 12:21 PM EDT [facility] Gross Description A. Gallbladder, : Labeled gallbladder . Received in red, blood-stained formalin, is an intact, 8.0 cm in length pink-red to purple gallbladder, including a segment of clipped cystic duct. The duct has a diameter of less than 0.1 cm at the margin. A soft to rubbery, pink to red, 0.75 cm in greatest diameter periductal lymph node is present. The serosa is smooth and the adventitia is cauterized. The maximal gallbladder circumference is 8.5 cm. The lumen contains green, viscid bile and multiple yellow calculi measuring up to 0.7 cm in greatest diameter. The calculi focally extend into and obstruct the neck and duct regions. The mucosa is velvety and dark green with a focal yellow stippling. The wall thickness averages less than 0.1 cm. The serosa is inked green and the adventitia is inked black. Pharmacy District Manager sections are submitted in one cassette including gallbladder (fundus, body and neck), bisected periductal lymph node, duct margin (inked red), and cross-section adjacent to duct margin (inked black), seven pieces. TS 03/17/2025 12:21 PM EDT [facility] Disclaimer Unless otherwise specified, all tissue is 10% NB formalin fixed and paraffin embedded. 03/17/2025 12:21 PM EDT [facility] Tissue Gallbladder structure / Unknown 03/16/2025 12:27 PM EDT 03/16/2025 2:01 PM EDT us Yaw Guidry MD LAB PATHOLOGY ORDERABLES Fi nal Result [facility] [address] [place] [address], * TH AN ENDOTRACHEAL(NO CHARGE) (03/16/2025 11:48 AM EDT) Narrative Jamaal Escamilla CRNA - 03/16/2025 11:48 AM EDT Jamaal Escamilla CRNA 03/16/2025 11:49 AM General Information and Staff Patient location during procedure: OR Performed by: Jamaal Escamilla CRNA Authorized by: Jersey Lopez DO Intubation Airway not difficult Urgency: elective Final Airway Details Successful airway: ETT Cuffed: yes Successful intubation technique: video laryngoscopy Facilitating devices/methods: intubating stylet Endotracheal tube insertion site: oral Blade: Ja Blade size: #3 ETT size (mm): 7.0 Cormack-Lehane Classification: grade I - full view of glottis Placement verified by: chest auscultation, capnometry and palpation of cuff Measured from: lips ETT to lips (cm): 21 Number of attempts at approach: 1 Ventilation between attempts: none Number of other approaches attempted: 0Final airway type: endotracheal airway Indications and Patient Condition Indications for airway management: anesthesia Spontaneous ventilation: present Sedation level: Yes Preoxygenated: yes Soft Tissue Damage: No Dentition Unchanged: Yes Patient position: sniffing MILS maintained throughout Mask difficulty assessment: 2 - vent by mask + OA or adjuvant +/- NMBA Start Time: 03/16/2025 11:44 AMStop Time: 03/16/2025 11:44 AM Jersey Lopez DO ANESTHESIA ORDERABLES Final Result from Last 3 Months Insurance MEDICAID - [place] Advance Directives * Full Code - Default (Latest Code Status on File) Date Activated Date Inactivated Comments 03/16/2025 9:57 AM 03/16/2025 6:22 PM This is order is used when code status has not been discussed with the patient, or code status is otherwise unknown/unconfirmed To update the patient's code status, place a code status order. Do not modify or discontinue any currently active code status orders. Care Teams Neurology Technician Relationship Specialty Start Date End Date Kait Miner [address] [place] [address] [phone] PCP - General Family Medicine 01/25/25
== END 2025-05-24 18:26 | disposition left against medical advice (07) ==
PROVIDERS: Physician Assistant; Emergency Provider Emergency Medicine
DX: R10.9 Unspecified abdominal pain (principal); I10 Essential (primary) hypertension; R11.0 Nausea; J02.9 Acute pharyngitis, unspecified
CPT/HCPCS: 36415; 80053; 83690; 84702; 85025; 87637; 87651; 99281; 99283

== ENCOUNTER 2025-09-29 08:49 | Outpatient (AMB) | payer MEDICAID, SELFPAY ==
--- OUTSIDE RECORDS SUMMARY | 2025-09-24 06:06 | XMS_ITS | Encounter Summary ---
Author Organization [facility] Address [address] [place] [address] Care Team Providers Care Gymnastic Teacher Name Role Phone [facility] Primary Care Provider [phone] Reason for Visit * Reason Comments Headache Pt states that this morning she was breathing really fast had some nausea and a headache speaking in full sentences rr 16 Encounter Details Date Type Department Care Team (Late st Contact Info) Description 09/24/2025 6:06 AM EST - 09/24/2025 8:09 AM EST Emergency [facility] Emergency [address] [place] [address] Discharge Disposition: Home or Self Care Social History Tobacco Use Types Packs/Day Years Used Date Smoking Tobacco: Never Smokeless Tobacco: Never Alcohol Use Standard Drinks/Week Comments Never 0 (1 standard drink = 0.6 oz pur e alcohol) Comments No Sex and Gender Information Value Date Recorded Sex Assigned at Female 01/25/2025 1:43 PM EDT Legal Sex Female 10:42 AM EST Gender Identity Female 01/25/2025 1:43 PM EDT Sexual Orientation Straight 01/25/2025 1: 43 PM EDT documented as of this encounter Last Filed Vital Signs Vital Sign Reading Time Taken Comments Blood Pressure 109/59 09/24/2025 6:13 AM EST Pulse 82 09/24/2025 6:13 AM EST Temperature 36.2 C (97.1 F) 09/24/2025 6:13 AM EST Respiratory Rate 16 09/24/2025 6:13 AM EST Oxygen Saturation 98% 09/24/2025 6:13 AM EST Inhaled Oxygen Concentration - - Weight 141 kg (310 lb) 09/24/2025 6:13 AM EST Height 162.6 cm (5' 4 ) 09/24/2025 6:13 AM EST Body Mass Index 53.21 09/24/2025 6:13 AM EST documented in this encounter Functional Status * Are you deaf or do you have serious difficulty hearing? Answer Date of Assessment Author No 03/22/2025 10:38 PM EDT Rubi Brian RN * Are you blind or do you have serious difficulty seeing, even when wearing glasses? Answer Date of Assessment Author No 03/22/2025 10:38 PM PUNE[place]T Rubi Brian RN * Do you have serious difficulty walking or climbing stairs? Answer Date of Assessment Author No 03/22/2025 10:38 PM EDT Rubi Brian RN * Do you have serious difficulty dressing or bathing? Answer Date of Assessment Author No 03/22/2025 10:38 PM EDT Rubi Brian RN * Because of a physical, mental, or emotional condition, do you have serious difficulty doing errandsalone such as visiting the doctor? Answer Date of Assessment Author No 03/22/2025 10:38 PM EDT Rubi Brian RN * Calculated C-SSRS Risk Score (Lifetime/Recent) Answer Date of Assessment Author No Risk Indicated 09/24/2025 6:15 AM EST Vonda Gallegos RN * [place] Suicide Severity Rating Scale (Screener/Recent Self-Report) Question Answer Date of Assessment Author 1. Wish to be (Past 1 Month) No 025 6:14 AM Vonda Humphreys RN 2. Non-Specific Active Suici emily Thoughts (Past 1 Month) No 09/24/2025 6:15 AM Vonda Humphreys RN 6. Suicidal Behavior (Lifetime) No 6:15 AM Vonda Humphreys RN documented as of this encounter Mental Status * Because of a physical, mental, or emotional condition, do you have serious difficulty concentrating, remembering, or making decisions? (5 years old or older) Answer Entry Date Author No 03/22/2025 10:38 PM EDT Rubi Brian RN documented in this encounter Discharge Disposition Disposition Code Departure Means Destination Home or Self Care documented in this encounter Progress Notes * Vonda Gallegos RN - 09/24/2025 6:13 AM EST PT HERE WITH C/O HEADACHE AND NAUSEA WHICH STARTED THIS MORNING. documented in this encounter Plan of Treatment Not on file documented as of this encounter Visit Diagnoses Not on filedocumented in this encounter Care Teams Gymnastic Teacher Relationship Specialty Start Date End Date [facility] [address] [place] [id number] PCP - General Family Medicine 01/25/25 documented as of this encounter
--- NOTE | 2025-09-29 08:50 | A.OFFVIS_ITS ---
Vital Signs 3 09/29/25 08:51 Height 5 ft 4 in Weight 266 lb 12.149 oz BMI 45.8 BP 118/80 Blood Pressure Location Rt brachial Position Sitting Pulse 58 Pulse Source Pulse Oximeter Pulse Oximetry (%) 98 Oxygen Delivery Method Room Air Intake Visit Reasons: PCOS Intake Note: New patient presents today to establish care for Polycystic Ovarian Syndrome (PCOS). L Rn Cardiology Required: No Accompanied by: Self / Same As Patient Allergies amoxicillin Allergy (Verified 09/29/25 08:57) Hives shrimp Allergy (Verified 09/29/25 08:57) Hives HPI Comments Details: 19 y.o F With past medical history of hypertension, PCOS, obesity, seen in the office for initial evaluation and management of PCOS and concern for Fairfield syndrome. Referred for evaluation of PCOS and concern for Fairfield syndrome. Reports irregular menses, hirsutism, and recent unintentional weight loss. Menarche at age 9. Reports a history of irregular menses, occurring once or twice a year, since menarche. This year, has been having regular monthly periods, except for May and June. Reports hirsutism since a young age, which has been increasing with age, primarily on the chin. Also reports spontaneous bruising, which was more prominent during the summer and has since resolved. Reports unintentional weight loss from 335 lbs to 280 lbs. Denies trying to lose weight. Reports feeling very lazy and tired at times, but sleeps well and denies snoring. Denies noticing tiera stretch white in her abdomen. Denies proximal muscle weakness. - Social history: Family history is positive for PCOS in a cousin. No known family history of weight issues or cortisol problems. Not sexually active. - Known allergies: None reported. Physical exam: General: Well appearing. NAD. Somewhat Cushingoid (yanes facies, no typical cervical fat pad) Neck/Thyroid: Thyroid not palpable, no nodules. Skin: No evident bruises in arms, abdomen. No tiera striae CV: RRR, no murmur. No edema. Resp:Lungs clear to auscultation bilaterally Abdomen: Soft, nontender. nondistended Extremities/Neuro: No weakness or tremor of outstretched hands Labs Imaging US pelvic and transvaginal 11/15/23 FINDINGS: Very limited transabdominal examination secondary to patient body habitus and urinary bladder under distention. Patient declined transvaginal examination. The uterus is anteverted measuring 7.7 x 3.3 x 4.2 cm. No discrete uterine mass. The endometrium measures approximately 0.5 cm in thickness, although is not entirely well seen in this examination. Ovaries are symmetric in size with the right ovary measuring 3.4 x 2.8 x 2.6 cm (12.9 mL) and the left ovary measuring 3.6 x 2.5 x 2.6 cm (12.3 mL). No discrete ovarian or adnexal mass, although evaluation is limited as above. No significant amount of free fluid. IMPRESSION: 1. Very limited examination as above. 2. No definite acute sonographic abnormalities. Consider further evaluation as clinically warranted. [facility] Medical History (Updated 09/29/25 @ 09:28 by Hilton Frankel MD) Hypertension Surgical History (Updated 09/29/25 @ 08:58 by NORTH Lakhani) Hx of cholecystectomy Family History (Updated 09/29/25 @ 08:59 by NORTH Lakhani) Father No problems noted. 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 However, the diagnosis is not definitive as the ovarian ultrasound from 11/2023 did not show evidence of polycystic ovaries, and testosterone levels from 10/2023 were normal. The recent regularization of menses this year is a new development. The hirsutism could also be related to a familial pattern or idiopathic hypertrichosis. The primary concern from the referring provider was Cyndy syndrome, but this is less likely given the unintentional weight loss. - Differential diagnosis: - Polycystic Ovary Syndrome (PCOS) - Idiopathic Hirsutism - Ethnic / familial hair pattern: common in heritage - Fairfield's Syndrome - Investigations planned: - Repeat hormone panel including testosterone. - Prolactin level. - Dexamethasone suppression test to rule out Fairfield syndrome. - Two midnight salivary cortisol tests to rule out Cyndy syndrome. - Medical treatment plan: - Will hold off on initiating specific PCOS medication until after lab results are available to confirm the diagnosis and rule out other causes. - Lifestyle modifications advised: - Counseled on the metabolic risks associated with PCOS, including diabetes and cardiovascular disease, and the importance of addressing these. - Follow up in 2 months to review all test results and discuss further management. Additional Notes: - Patient education provided regarding the diagnostic criteria for PCOS (two out of three criteria: oligo-anovulation, clinical/biochemical hyperandrogenism, polycystic ovaries). Explained that while she meets one criterion (oligomenorrhea) and has clinical signs of hyperandrogenism (hirsutism), the lack of biochemical evidence and normal ovarian ultrasound makes the diagnosis less certain. Discussed that PCOS can present in early stages without elevated testosterone levels. Explained the rationale for repeating tests to ensure accuracy and rule out other conditions like Cyndy syndrome before making a definitive diagnosis. - Instructions for symptom monitoring: - Provided with written instructions for the dexamethasone suppression test: take one pill between 11:00 PM and midnight, then have blood work done between 7:00 AM and 8:00 AM the next morning. - Provided with written instructions for the midnight salivary cortisol tests: collect saliva around midnight on two separate days. Advised to avoid eating, drinking, smoking, or brushing teeth for at least one hour prior to collection to avoid false elevation. - Instructed to perform the salivary cortisol tests first, followed by the dexamethasone suppression test, as the dexamethasone can suppress cortisol in saliva. - Addressed concerns about feeling rushed during previous visits with her primary care provider. Assured her that understanding her condition is important and that questions are welcome at any time. Plan 65 minutes spent reviewing previous records, labs, imaging, education and documenting in the chart Orders: Orders 2 Adrenocorticotropic Hormone Today E24.9 - Fairfield's syndrome, unspecified Saliva Cortisol 1 Day E24.9 - Fairfield's syndrome, unspecified Cortisol Random Today E28.2 - Polycystic ovarian syndrome Saliva Cortisol Today E24.9 - Cyndy's syndrome, unspecified Prolactin Today E28.2 - Polycystic ovarian syndrome Testosterone, Free/Total Today E28.2 - Polycystic ovarian syndrome Thyroid Stimulating Hormone Today E28.2 - Polycystic ovarian syndrome Lutenizing Hormone Today E28.2 - Polycystic ovarian syndrome Follicle Stimulating Hormone Today E28.2 - Polycystic ovarian syndrome Medications: New 2 dexamethasone 1 mg PO ONCE 1 tab 0RF Patient Instructions: PLEASE HAVE THE MIDNIGHT SALIVARY CORTISOL FIRST, BEFORE THE DEXAMETHASONE SUPPRESSION TEST Patient Instructions: 1 mg Overnight Dexamethasone Suppression Test Purpose: This test helps determine if your body is producing too much cortisol, a hormone made by your adrenal glands. Preparation: Medications: Tell your provider about all medications and supplements you are taking. Some drugs (especially certain anti-seizure medications, rifampin, and estrogen) can affect test results. Illness: If you are acutely ill, postpone the test until you are well. : This test is not recommended if you are . Instructions: Obtain the Medication: You will need one 1 mg dexamethasone tablet (sometimes two 0.5 mg tablets). When to Take the Tablet: Take the entire 1 mg dose by mouth at exactly 11:00 PM (23:00) on the night before your scheduled blood test. Swallow the tablet(s) with a small amount of water. Fasting: You may eat and drink as usual before taking the tablet. Do not eat or drink anything except water after midnight until your blood is drawn the next morning. Blood Draw: Arrive at the laboratory between 8:00 and 9:00 AM the next morning for your blood test. Do not delay your blood draw; timing is critical for accurate results. Other Considerations: Avoid alcohol and strenuous exercise the evening before and the morning of the test. If you miss the dose or take it at the wrong time, notify your provider and reschedule the test. Midnight Salivary Cortisol Collection Preparation: Do not eat, drink, brush your teeth, or use tobacco for at least 30 minutes before collecting your saliva sample. Avoid vigorous exercise and stressful activities in the evening before collection. When to collect: Collect your saliva sample at exactly midnight (12:00 AM). How to collect: Open the saliva collection kit provided. Allow saliva to pool in your mouth, then gently spit into the collection tube until it reaches the fill line. Do not cough or clear your throat into the tube. Close the tube tightly. After collection: Label the tube with your name, date, and time of collection. Store the sample in the refrigerator until you bring it to the lab or as instructed. Coding Level of Care Code New Pt Level 5 (80322) Add On Problem Visit Only Diagnoses Cyndy's syndrome, unspecified E24.9 PCOS (polycystic ovarian syndrome) E28.2
[2025-09-29 08:51] VITALS: BP 118/80; PULSE 58; O2SAT 98; BMI 45.8
--- OUTSIDE RECORDS SUMMARY | 2025-09-29 09:09 | XMS_ITS ---
Author Organization [employer] Address [address] [facility] [address] [place] [address] Care Team Providers Care Gauge Maker Name Role Phone Kait Miner PEDIATRIC PHYSICIAN Primary Care Provider Tammi Davis RN Unavailable [phone] Minerva Abreu Unavailable CM Complex Status:Outreach In Progress (Enrolling) Start date:07/24/2025 Enrollment reason:C3 Manual Referral Overview C3 Referral- High Ed Utilization Case Team Name Relationship Phone Tammi Davis RN(Responsible Staff) Registered Nurse Continued Care and Services Coordination
--- OUTSIDE RECORDS SUMMARY | 2025-09-29 09:10 | XMS_ITS | Encounter Summary ---
Author Organization [employer] Address [address] [facility] [address] [place] [address] Care Team Providers Care Saloon Keeper Name Role Phone Kait Miner [facility] Primary Care Provider Tammi Davis RN Unavailable [phone] Minerva Abreu Unavailable Encounter Details Date Type Department Care Team (Latest Contact Info) Description 02/15/2021 Abstract [facility] CONVERSIONS Dental, Provider, DDS Social History Tobacco Use Types Packs/Day Years Used Date Smoking Tobacco: Never Assessed Comments Unknown Sex and Gender Information Value Date Recorded Sex Assigned at Female 08/07/2022 10:21 AM EDT Legal Sex Female 10:21 AM EDT Gender Identity Female 08/07/2022 10:21 AM EDT Sexual Orientation Straight 08/07/2022 10 :21 AM EDT documented as of this encounter Plan of Treatment Upcoming Encounters Date Type Department Care Team (Late st Contact Info) Description 11/03/2025 8:00 AM EST Office Visit [facility] ADULT DENTAL [address], [place] [phone] Moises Martinez [address] [place] [address] documented as of this encounter Visit Diagnoses Not on filedocumented in this encounter Care Teams Saloon Keeper Relationship Specialty Start Date End Date Kait Miner FNP [address] [place] [address] PCP - General Family Medicine 06/04/22 Tammi Davis RN [address] [place] [id number] Registered Nurse Family Medicine 07/24/25 Minerva Abreu 07/24/25 documented as of this encounter
--- OUTSIDE RECORDS SUMMARY | 2025-09-29 09:10 | XMS_ITS | Encounter Summary ---
Author Organization [employer] Address [address] [facility] 7t [place] [address] Care Team Providers Care Sheet Metal Worker Maintenance Name Role Phone Kristofer [facility] Primary Care Provider [phone] Tammi Davis RN Unavailable [phone] Minerva Abreu Unavailable Reason for Visit * Reason Comments Med Refill Encounter Details Date Type Department Care Team (Late st Contact Info) Description 09/29/2025 Refill [facility] MED[facility]INE [address] [place], [place] [phone] [place] [facility] [address] [place] [address] Essential hypertension Social History Tobacco Use Types Packs/Day Years Used Date Smoking Tobacco: Every Day Smokeless Tobacco: Never Alcohol Use Standard Drinks/Week Comments Never 0 (1 standard drink = 0.6 oz pur e alcohol) Depression Answer Date Recorded Patient Health Questionnaire-9 Score 9 06/22/2025 Patient Health Questionnaire-9 Score 9 06/22/2025 Last PHQ-9: Questionnaire Data Not on file 0 06/22/2025 Housing Stability Answer Date Recorded What is your housing situation today? I have lucrecia shanks 05/04/[address] you li ve. Do you have problems with any of the following? None of the above 05/04/2025 Food Insecurity Answer Date Recorded Within the past 12 months, y ou worried that your food would run out before you got money to buy more: Sometimes True 2024 Within the past 12 months,th e food you bought just didn't last and you didn't have enough money to get more: Sometimes True 09/25/2025 Transportation Answer Date Recorded In the past 12 months, has l ack of transportation kept you from medical appts, meetings, work or from getting things needed for daily living? No 05/04/2025 Utilities Answer Date Recorded In the past 12 months, has t he electric, gas, oil or water company threatened to shut off services in your home? No 05/04/2025 Depression Answer Date Recorded Patient Health Questionnaire-2 Score 0 06/22/2025 Internet Access Answer Date Recorded Internet Access Q1 Yes 05/04/2025 Internet Access Q2 Not on file 05/04/2025 Comments No Sex and Gender Information Value [...] Description 11/03/2025 8:00 AM EST Office Visit [facility] ADULT DENTAL [address] [place], [place] [phone] Moises Martinez [address] [place] [address] documented as of this encounter Visit Diagnoses Diagnosis Essential hypertension Unspecified essential hypertension documented in this encounter Additional Health Concerns Assessment Noted Time PHQ-9 Depression Total Score: 9 06/22/20 25 9:29 AM EDT documented as of this encounter Care Teams Sheet Metal Worker Maintenance Relationship Specialty Start Date End Date Kait Miner FNP [address] [place], [place] [phone] PCP - General Family Medicine 06/04/22 Tammi Davis RN [address] [place] [address] Registered Nurse Family Medicine 07/24/25 Minerva Abreu 07/24/25 documented as of this encounter
--- OUTSIDE RECORDS SUMMARY | 2025-09-29 09:10 | XMS_ITS | Clinical Summary ---
Author Organization [facility] Address [address] [place] [address] Phone Care Team Providers Care Mortgage Collector Name Role Phone Kristofer Kait Primary Care Provider [phone] Allergies Active Allergy Reactions Criticality Noted Date Comments Amoxicillin Hives Medium 11/05/2024 Penicillins Hives Medium 11/05/2024 Shrimp Medium 11/04/2024 HIVES Medications No known medications Active Problems Problem Noted Date Diagnosed Date Calculus of gallbladder with out cholecystitis without obstruction 02/06/2025 Encounters Date Type Department Care Team Description 09/24/2025 6:06 AM EST - 09/24/2025 8:09 AM EST Emergency [facility] Emergency [address] [place] [id number] Discharge Disposition: Home or Self Care from Last 3 Months Medical History Medical History Date Comments Asthma as child/ no inh nayeli Hypertension Morbid obesity with body mas s index (BMI) of 50.0 to 59.9 in adult (CMS/HCC V24, CMS/HCC V28) Social History Tobacco Use Types Packs/Day [...] Orientation Straight 01/25/2025 1: 43 PM EDT Last Filed Vital Signs Vital Sign Reading [...] Mass Index 53.21 09/24/2025 6:13 AM EST Plan of Treatment Health Maintenance Due Date Last Done Comments Gonorrhea/Chlamydia Screening 2003 Meningococcal B Vaccine (1 of 2 - Standard) 2019 HIV Screening 09/11/2022 Hepatitis C Screening 09/11/2022 Social Influencers of Health Screening 09/11/2022 Cervical Cancer Screening: Pap Smear 2024 Depression Screening 10/08/2024 COVID-19 Vaccine ( season) 2025 10/20/2021, 02/28/2021, 02/07/2021 Influenza Vaccine (#1) 2025 , 07/19/2022, 07/14/2020, Additional history exists Hypertension/CHF/CAD Annual BMP Blood Test 04/10/2026 04/10/2025, 03/22/2025, 03/14/2025, Additional history exists Cholesterol Screening (Lipid Panel) 07/31/2029 07/31/2024 DTaP,Tdap,and Td Vaccines (8 - Td or Tdap) 06/21/2032 06/21/2022, 12/29/2014, 05/11/2008, Additional history exists RSV Immunization Adult Patients (1 - 1-dose 75+ series) 2078 Hepatitis B Vaccines Completed 01/15/2004, 2003, 2003, Additional history exists HIB Vaccines Completed 12/13/2004, 06/2004, 2003, Additional history exists Pneumococcal Vaccine: Pediatrics (0 to 5 Years) and At-Risk Patients (6 to 49 Years) Completed 12/13/2004, 04/20/2004, 2003, Additional history exists MMR Vaccines Completed 02/27/2007, 07/26/2004 Varicella Vaccines Completed 02/27/2007, 07/26/2004 IPV Vaccines Completed 05/11/2008, /06/2004, 2003, Additional history exists Hepatitis A Vaccines Completed 07/26/2010, 05/11/20 08 HPV Vaccines Completed 07/06/2015, 02/06, 12/29/2014 Meningococcal ACWY Vaccine Completed 12/08/2019, RSV Immunization Patients Under 20 months Aged Out No longer eligible based on patient's age to complete this topic Procedures Procedure Name Priority Date/Time Associated Diagnosis Comments COMPREHENSIVE METABOLIC PANEL STAT 04/10/2025 9:50 AM EDT from Last 3 Months or Most Recently Relevant to Health Maintenance Results * (ABNORMAL) Comprehensive metabolic panel (04/10/2025 9:50 AM EDT) Sodium 141 133 - 145 mmol/L LAB CHEMISTRY METHOD 04/10/2025 10:39 AM [facility] Potassium 4.3 3.5 - 5.5 mmol/L LAB CHEMISTRY METHOD 04/10/2025 10:39 AM [facility] Chloride 111(H) 96 - 110 mmol/L LAB CHEMISTRY METHOD 04/10/2025 10:39 AM [facility] CO2 25 21 - 32 mmol/L LAB CHEMISTRY METHOD 04/10/2025 10:39 AM [facility] Anion Gap 5 3 - 11 LAB CHEMISTRY METHOD 04/10/2025 10:39 AM [facility] Glucose 97 70 - 100 mg/dL LAB CHEMISTRY METHOD 04/10/2025 10:39 AM [facility] BUN 16 5 - 25 mg/dL LAB CHEMISTRY METHOD 04/10/2025 10:39 AM [facility] Creatinine 0.71 0.50 - 1.10 mg/dL LAB CHEMISTRY METHOD 04/10/2025 10:39 AM [facility] eGFR 124 >=60 mL/min/1. 73m2 LAB CHEMISTRY METHOD 04/10/2025 10:39 AM [facility] Comment:Calculation based on the Chronic Kidney Disease Epidemiology Collaboration (CKD-EPI) equation refit without adjustment for race. BUN/Creatinine Ratio 22.5 LAB CHEMISTRY METHOD 04/10/2025 10:39 AM [facility] Calcium 8.9 8.5 - 10.5 mg/dL LAB CHEMISTRY METHOD 04/10/2025 10:39 AM [facility] AST (SGOT) 16 10 - 42 unit/L LAB CHEMISTRY METHOD 04/10/2025 10:39 AM [facility] ALT (SGPT) 22 10 - 60 unit/L LAB CHEMISTRY METHOD 04/10/2025 10:39 AM [facility] Alkaline Phosphatase 97 42 - 121 unit/L LAB CHEMISTRY METHOD 04/10/2025 10:39 AM [facility] Total Protein 6.8 6.0 - 8.0 g/dL LAB CHEMISTRY METHOD 04/10/2025 10:39 AM [facility] Albumin 3.7 3.2 - 5.0 g/dL LAB CHEMISTRY METHOD 04/10/2025 10:39 AM [facility] Total Bilirubin 0.5 0.0 - 1.4 mg/dL LAB CHEMISTRY METHOD 04/10/2025 10:39 AM [facility] Blood Venous blood specimen / Unknown Venipuncture / Unknown 04/10/2025 9:50 AM EDT 04/10/2025 10:01 AM EDT us Tyrel Bagley DO LAB BLOOD ORDERABLES Final Res ult [facility] [address] [place] [address], from Last 3 Months or Most Recently Relevant to Health Maintenance Insurance MEDICAID - [place] Advance Directives * Full Code - Default [...] currently active code status orders. Care Teams Mortgage Collector Relationship Specialty Start Date End Date Kristofer Kait [address] [facility] [address] [place] [address] PCP - General Family Medicine 01/25/25
--- OUTSIDE RECORDS SUMMARY | 2025-09-29 09:10 | XMS_ITS | Encounter Summary ---
Author Organization [employer] Address [address] [facility] 7t [place] [address] Care Team Providers Care Underwriting Manager Name Role Phone [place] [facility] Primary Care Provider [phone] Tammi Davis RN Unavailable [phone] Minerva Abreu Unavailable Encounter Details Date Type Department Care Team (Late st Contact Info) Description 09/25/2025 Patient Outreach [facility] MEDICINE [address] [place], [place] [phone] [facility] [address] [place] [address] Social History Tobacco Use Types Packs/Day Years [...] Description 11/03/2025 8:00 AM EST Office Visit [facility] ADULT DENTAL [address] [place], [place] [phone] Moises Martinez [address] [place] [address] documented as of this encounter Visit Diagnoses Not on filedocumented in this encounter Additional Health Concerns Assessment Noted Time PHQ-9 Depression Total Score: 9 06/22/20 25 9:29 AM EDT documented as of this encounter Care Teams Underwriting Manager Relationship Specialty Start Date End Date KristoferKait varma FNP [address] [place] [address] PCP - General Family Medicine 06/04/22 Tammi Davis, JAYMIE [address] [place] [address] Registered Nurse Family Medicine 07/24/25 Minerva Abreu 07/24/25 documented as of this encounter
--- OUTSIDE RECORDS SUMMARY | 2025-09-29 09:10 | XMS_ITS | Encounter Summary ---
Author Organization [employer] Address [address] [facility] 7t [place] [address] Care Team Providers Care Director Of Securities And Real Estate Name Role Phone [facility] Provider Tammi Davis RN Unavailable [phone] Minerva Abreu Unavailable Encounter Details Date Type Department Care Team (Late Contact Info) Description 09/28/2023 Orders Only [facility] [address] [place], [place] [phone] Sean Araya MD [address] [place], [place] [phone] H. pylori infection Social History Tobacco Use Types Packs/Day Years Used Date Smoking Tobacco: Never Smokeless Tobacco: Never Alcohol Use Standard Drinks/Week Comments Never 0 (1 standard drink = 0.6 oz pur e alcohol) Comments Unknown Sex and Gender Information Value Date Recorded Sex Assigned at Female 08/07/2022 10:21 AM EDT Legal Sex Female 10:21 AM EDT Gender Identity Female 08/07/2022 10:21 AM EDT Sexual Orientation Straight 08/07/2022 10 :21 AM EDT documented as of this encounter Plan of Treatment Upcoming Encounters Date Type Department Care Team (Late Contact Info) Description 11/03/2025 8:00 AM EST Office Visit [facility] ADULT DENTAL [address] [place], [place] [phone] Moises Martinez [address] [place] [address] documented as of this encounter Visit Diagnoses Diagnosis H. pylori infection Helicobacter pylori (H. pylori) documented in this encounter Care Teams Director Of Securities And Real Estate Relationship Specialty Start Date End Date Kait Miner FNP [address] [place] [address] PCP - General Family Medicine 06/04/22 Tammi Davis, JAYMIE [address] [place] [address] Registered Nurse Family Medicine 07/24/25 Minerva Abreu 07/24/25 documented as of this encounter
--- OUTSIDE RECORDS SUMMARY | 2025-09-29 09:10 | XMS_ITS | Encounter Summary ---
Author Organization [employer] Address [address] [facility] 7t [place] [address] Care Team Providers Care Consumer Safety Officer Name Role Phone [facility] Primary Care Provider Tammi Davis RN Unavailable [phone] Minerva Abreu Unavailable Reason for Visit * Reason Comments Care Coordination C3 -Saloni mak telephone call outreach Encounter Details Date Type Department Care Team (Latest Contact Info) Description 09/25/2025 Patient Outreach [facility] MEDICINE [address] [place] [address] [facility] [address] [place] [address] Care Coordination (C3 -LORI Abreu telephone call outreach) Social History Tobacco Use Types Packs/Day Years [...] AM EDT documented as of this encounter Progress Notes * Minerva Abreu - 09/25/2025 12:13 PM EST CHW Minerva Abreu, placed outbound call to patient introducing herself from [facility] CM Department, in regards to offering services. Patient's name and was confirmed. Patient agrees toparticipate in program. Appt. for initial assessment scheduled for 10/13/25 @ 1:00 PM. CHW reinforceddirect contact information or for any additional questions or concerns and extended clinic hours on Mondays and Wednesdays, and Walk-In Urgent Care Located in [facility]. Patient provided with after-hours line for [facility], , which offer night time triage service and option to transfer to english as a second language teacher provider if needed. Patient verbalizes understanding, and able to repeat back to short story writer. documented in this encounter Plan of Treatment Upcoming Encounters Date Type Department Care Team (Late st Contact Info) Description 11/03/2025 8:00 AM EST Office Visit [facility] ADULT DENTAL [address] [place] [address] JuanMiranda moorericio [address] [place] [address] documented as of this encounter Visit Diagnoses Not on filedocumented in this encounter Additional Health Concerns Assessment Noted Time PHQ-9 Depression Total Score: 9 06/22/20 25 9:29 AM EDT documented as of this encounter Care Teams Consumer Safety Officer Relationship Specialty Start Date End Date Kait Miner FNP [address] [place] [address] PCP - General Family Medicine 06/04/22 Tammi Davis RN [address] [place] [address] Registered Nurse Family Medicine 07/24/25 Minerva Abreu 07/24/25 documented as of this encounter
--- OUTSIDE RECORDS SUMMARY | 2025-09-29 09:10 | XMS_ITS | Encounter Summary ---
Author Organization [employer] Address [address] [facility] 7t [place] [address] Care Team Providers Care Barrel Leveler Name Role Phone Kait Miner SAND SLINGER OPERATOR Primary Care Provider Tammi Davis RN Unavailable [phone] Minerva Abreu Unavailable Reason for Visit * Reason Onset Date Comments rs rct appt 09/15/2025 Encounter Details Date Type Department Care Team ([facility] st Contact Info) Description 09/15/2025 Telephone C [facility] ADULT DENTAL [address] [place], [place] [phone] Manuel Bang DDS [address] [place] [address] rs rct appt Social History Tobacco Use Types Packs/Day Years [...] before you got money to buy more: Never True 05/04/2025 Within the past 12 months,th e food you bought just didn't last and you didn't have enough money to get more: Never True Transportation Answer Date Recorded In the past [...] AM EDT documented as of this encounter Miscellaneous Notes * Telephone Encounter - Amena Nam - 09/15/2025 9:12 AM EST Patient called in to rescheduled RCT appointment that patient had to cancel due to illness. Patientis aware that provider is here once a week with limited availability. Please reach out to patient for scheduling DR documented in this encounter Plan of Treatment Upcoming Encounters Date Type Department Care Team (Late st Contact Info) Description 11/03/2025 8:00 AM EST Office Visit [facility] ADULT DENTAL [address] [place] [address] Moises Martinez [address] [place] [address] documented as of this encounter Visit Diagnoses Not on filedocumented in this encounter Additional Health Concerns Assessment Noted Time PHQ-9 Depression Total Score: 9 06/22/20 25 9:29 AM EDT documented as of this encounter Care Teams Barrel Leveler Relationship Specialty Start Date End Date VenetaKait SAND SLINGER OPERATOR [address] [place] [address] PCP - General Family Medicine 06/04/22 Tammi Davis RN [address] [place] [address] Registered Nurse Family Medicine 07/24/25 Minerva Abreu 07/24/25 documented as of this encounter
--- OUTSIDE RECORDS SUMMARY | 2025-09-29 09:10 | XMS_ITS ---
Author Organization [facility] Address [address] [facility] 7t [place] [address] Care Team Providers Care Catering Manager Name Role Phone Kait Miner TENSION WORKER Primary Care Provider [phone] Tammi Davis RN Unavailable [phone] Minerva Abreu Unavailable CHW Complex Status:Enrolled (Active) Start date:07/24/2025 Enrollment date:09/25/2025 Enrollment reason:C3 Manual Referral Overview C3 Referral- High Ed Utilization. Please outreach to patient. Case Team Name Relationship Phone Minerva Abreu(Responsible Staff) Continued Care and Services Coordination
--- OUTSIDE RECORDS SUMMARY | 2025-09-29 09:10 | XMS_ITS | Encounter Summary ---
Author Organization [employer] Address [address] [facility] 7t [place] [address] Care Team Providers Care Civil Rights Attorney Name Role Phone [facility] Primary Care Provider [phone] Tammi Davis RN Unavailable [phone] Minerva Abreu Unavailable Reason for Visit * Reason Comments Care Coordination C3 -Saloni mak telephone call outreach Encounter Details Date Type Department Care Team (Latest Contact Info) Description 09/25/2025 Patient Outreach [facility] MEDICINE [address] [place] [address] [place] [facility] [address] [place] [address] Care Coordination (C3 -LORI Abreu telephone call [...] Progress Notes * Minerva Abreu - 09/25/2025 10:41 AM EST CHW Minerva Abreu, placed outbound call to patient in regards to offer services. CHW introducing herself from [facility] CM Department with CHW's name, department and direct contact number requesting call back. Will re-attempt to contact within 5 days. and address not confirmed. documented in this encounter Plan of Treatment Upcoming Encounters Date Type Department Care Team (Late st Contact Info) Description 11/03/2025 8:00 AM EST Office Visit [facility] ADULT DENTAL [address] [place] [address] Moises Martinez [address] [place] [address] documented as of this encounter Visit Diagnoses Not on filedocumented in this encounter Additional Health Concerns Assessment Noted Time PHQ-9 Depression Total Score: 9 06/22/20 25 9:29 AM EDT documented as of this encounter Care Teams Civil Rights Attorney Relationship Specialty Start Date End Date Kait Miner FNP [address] [place] [address] PCP - General Family Medicine 06/04/22 Tammi Davis RN [address] [place] [address] Registered Nurse Family Medicine 07/24/25 Minerva Abreu 07/24/25 documented as of this encounter
--- OUTSIDE RECORDS SUMMARY | 2025-09-29 09:10 | XMS_ITS | Clinical Summary ---
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 1 kit 05/14/20 Active Additional Information Patient not taking.Reported on 06/22/2025 diphenhydrAMINE (BENADryl) 2 % creamIndications:A moxicillin rash Apply topically if needed in the morning, at noon, and at bedtime for itching. 56.8 g 1 05/14/20 23 Active diphenhydrAMINE (BENADryl) 25 MG capsuleIndications :Amoxicillin rash Take 1 capsule (25 mg) by mouth every 8 (eight) hours if needed for itching. 30 capsule 1 05/14/20 23 Active ondansetron (Zofran) 4 MG tablet Take 1 tablet (4 mg) by mouth every 8 (eight) hours if needed for nausea or vomiting for up to 10 doses. 10 tablet 08/15/20 23 Active omeprazole (PriLOSEC) [address] capsule Take 1 capsule (20 mg) by mouth 2 times daily for 14 days. Do not crush or chew. 28 capsule 09/28/20 23 Active Additional Information Patient not taking.Reported on 06/22/2025 norethindrone-ethi nyl estradiol (10/27) 1-20 MG-MCG tabletIndications: Primary oligomenorrhea Take 1 tablet by mouth in the morning. 28 tablet 12 10/31/19 24 Active Additional Information Patient not taking.Reported on 06/22/2025 dexAMETHasone (Decadron) 1 MG tabletIndications: Primary oligomenorrhea Take 1 tablet (1 mg) by mouth 1 (one) time for 1 dose. At 11pm 1 tablet 11/21/19 24 Active Additional Information Patient not taking.Reported on 06/22/2025 azithromycin (Zithromax Z-Cesar) 250 MG tablet Take 2 tablets once on day 1, then 1 tablet 1x/day for 4 days. 6 tablet 06/24/20 24 Active Additional Information Patient not taking.Reported on 06/22/2025 ibuprofen 600 MG tabletIndications: Severe dental caries Take 1 tablet (600 mg) by mouth every 6 (six) hours if needed for mild pain for up to 20 doses. 20 tablet 10/29/19 25 Active Additional Information Patient not taking.Reported on 06/22/2025 ibuprofen 600 MG tablet Take 1 tablet (600 mg) by mouth every 6 (six) hours if needed for mild pain for up to 20 doses. 20 tablet 12/09/19 25 Active Additional Information Patient not taking.Reported on 06/22/2025 olmesartan (Benicar) 5 MG tabletIndications: Essential hypertension Take 1 tablet (5 mg) by mouth Once per day. 30 tablet 3 06/22/20 25 Active ibuprofen 600 MG tablet Take 1 tablet (600 mg) by mouth every 6 (six) hours if needed for mild pain for up to 20 doses. 20 tablet 07/06/20 25 Active ibuprofen 600 MG tablet Take 1 tablet (600 mg) by mouth every 6 (six) hours if needed for mild pain for up to 20 doses. 20 tablet 08/03/20 25 Active azithromycin (Zithromax) 250 MG tablet Take 2 tabs (500mg) on Day 1, and then 1 tab on Days 2-5. 6 tablet 08/03/20 25 Active Additional Information Patient not taking.Reported on 09/21/2025 ibuprofen 600 MG tablet Take 1 tablet (600 mg) by mouth every 6 (six) hours if needed for mild pain for up to 20 doses. 20 tablet 08/17/20 25 Active azithromycin (Zithromax) 250 MG tablet Take 2 tabs (500mg) on Day 1, and then 1 tab on Days 2-5. 6 tablet 09/21/20 25 Active ibuprofen 600 MG tablet Take 1 tablet (600 mg) by mouth every 6 (six) hours if needed for mild pain for up to 20 doses. 20 tablet 09/21/20 25 Active Active Problems Problem Noted Date Diagnosed Date Severe dental caries 10/29/2024 Symptomatic apical periodontitis 10/29/2024 Seborrhea 08/07/2024 Assessment & Plan (08/07/2024 4:55 PM EDT): Rx as written below Return to clinic for failure to imrpove Exercise counseling 08/07/2024 Assessment & Plan (08/07/2024 4:58 PM EDT): Encouraged daily movement, working up to 30 minutes daily Dietary counseling 08/07/2024 Assessment & Plan (08/07/2024 4:56 PM EDT): Encouraged minimizing processed foods and increasing whole foods particularly vegetables Health care maintenance 07/29/2024 Assessment & Plan (08/07/2024 4:53 PM EDT): Anticipatory guidance reviewed Encourage activity Pap due by age 23 Hypertension 07/29/2024 Assessment & Plan (08/07/2024 4:52 PM EDT): Above goal of <130/<80 BP goal: < 130/80 mmHg Initiate lisinopril 10 mg Encourage Lifestyle Interventions: -Routine aerobic exercise - initial goal of 30 min walk 3-5x/week. Increase as tolerated with goal 150 minutes weekly -low-sodium diet (goal: <2g/day) and heart healthy diet such as DASH to reduce BP and ASCVD risk. -Home BP monitoring 2-3 x/week (or more frequently as directed) -Seek immediate medical attention for chest pain, palpitations, SOB, syncope, or sudden changes in mental status. -Do not change or discontinue current prescriptions without first consulting health care provider Severe obesity ([facility]) 07/24/2024 H. pylori infection 09/28/2023 Diarrhea 09/24/2023 Assessment & Plan (09/24/2023 2:12 PM EST): Food intolerance? Malabsorption? Gave order for stool tests ordered last month. Increase PO hydration Weakness 09/24/2023 Assessment & Plan (09/24/2023 2:12 PM EST): It could be related to intermittent diarrhea/lyte abn? HTN? PreDM? Order labs and fu with PCP with BP log Encouraged increase PO fluid intake, keep food/sxs dairy. Acute low back pain 05/14/2023 Low vitamin D level 05/14/2023 Amoxicillin rash 05/14/2023 Elevated BP without diagnosis of hypertension Assessment & Plan (09/24/2023 2:13 PM EST): Keep BP log at home every other day and fu with PCP in 3-4w Counseled re low salt diet/increase moderate physical activity. Check home BP BIW and prn CP/VICENTE/KEVIN Order lbs, may need A1c with PCP Obesity 03/26/2013 Encounters Date Type Department Care Team Description 09/29/2025 Refill [facility] [address] [place] [phone] Kait Miner FNP Essential hypertension 09/25/2025 Patient Outreach [address] [address] Kait Miner FNP Care Coordination ([facility]3 [facility] Minerva Abreu telephone call outreach) 09/25/2025 Patient Outreach [facility] [address] [place] [phone] Kait Miner FNP Care Coordination ([facility] Minerva Abreu telephone call outreach) 09/25/2025 Patient Outreach [address] [phone] Kait Miner FNP 09/21/2025 8:00 AM EST Office Visit [facility] ADULT DENTAL [address] [place] [address] Juan, Moises 09/21/2025 Travel 09/15/2025 Telephone [facility] ADULT DENT[facility] [address] [place] [address] Manuel Bang DDS rs rct appt 08/17/2025 8:00 AM EST Office Visit [facility] ADULT DENT[facility] [address] [place] [address] Juan, Moises 08/17/2025 Travel 08/10/2025 8:00 AM EST Office Visit [facility] ADULT D[facility] [address] [place] [address] Juan Moises 08/03/2025 8:00 AM EDT Office Visit [facility] ADULT D[facility] [address] [place] [address] Juan Moises 08/03/2025 Travel 07/24/2025 Patient Outreach [address] [phone] Kait Miner FNP Care Coordination ([facility]3 -[facility] Minerva Abreu chart review/) 07/24/2025 Patient Outreach [address] [phone] Kait Miner FNP Care Management (C3 -CHART REVIEW/) 07/24/2025 Patient Outreach [address] [address] Kait Miner FNP 07/07/2025 2:00 PM EDT Clinical Support [address] [address] Shonda Zapata, JAYMIE Elevated BP without diagnosis of hypertension 07/07/[address] [address] Kait Miner FNP Medication Question 07/07/2025 Travel 07/06/2025 10:30 AM EDT Office Visit [facility] ADULT DENTAL [address] [place] [address] Moises Martinez from Last 3 Months Immunizations Immunization Administration Dates Next Due DTaP 05/11/2008, 5,01/15/2004,11/27,2003 HPV 9-Valent 07/06/2015 HPV, Quadrivalent 03/02/2015,12/29/2014 Hep A, ped/adol, 2 dose 07/26/2010,05/11/2008 Hep B, Adolescent or Pediatric 4,2003,2003,06/28 Hib (HbOC) 12/13/2004, 4,2003,09/01 IPV 05/11/2008, 4,2003,09/01 Influenza injectable quadriv alent preservative free 07/19/2022,07/14/2020,12/08/2019,07/06,12/29/2014 Influenza, IIV3, injectable 05/30/2011,1 11/08/2007,10/27/2005,07/26 MMR 02/27/2007,07/26/2004 Meningococcal MCV4P ACYW-135 12/08/2019,12/30/19 15 Pneumococcal Conjugate PCV 7 12/13/2004, 04/20/2004,2003,09/01 Tdap 12/29/2014 Varicella 02/27/2007,07/26/2004 Social History Tobacco Use Types Packs/Day Years Used Date Smoking Tobacco: Every Day Smokeless Tobacco: Never Tobacco Cessation:Ready to Q uit: Not Asked; Counseling Given: Not Answered Alcohol Use Standard Drinks/Week [...] Orientation Straight 08/07/2022 10 :21 AM EDT Last Filed Vital Signs Vital Sign Reading Time Taken Comments Blood Pressure 114/84 09/21/2025 8:30 AM EST Pulse 74 07/07/2025 2:09 PM EDT Temperature 37.2 C (98.9 F) 06/22/2025 8:59 AM EDT Respiratory Rate 16 07/07/2025 2:09 PM EDT Oxygen Saturation 100% 07/07/2025 2:09 PM EDT Inhaled Oxygen Concentration - - Weight 131 kg (289 lb) 06/22/2025 8:59 AM EDT Height 160 cm (5' 3 ) 06/22/2025 8:59 AM EDT Body Mass Index 51.19 06/22/2025 8:59 AM EDT Plan of Treatment Upcoming Encounters Date Type Department Care Team (Late st Contact Info) Description 11/03/2025 8:00 AM EST Office Visit [facility] ADULT DENTAL [address] [place] [address] Moises Martinez [address] [place] [address] Health Maintenance Due Date Last Done Comments Chlamydia and Gonorrhea Screening 2003 HIV Screening 2003 Alcohol/Substance Use Screening 2015 Family Planning (PISQ) 2018 Meningococcal B Vaccine (1 of 2 - Standard) 2019 Hepatitis C Screening 2021 Pneumococcal Vaccine: Pediatrics (0 to 5 Years) and At-Risk Patients (6 to 49) Years (1 of 2 - PCV) 2022 12/13/2004, 04/20/2004, 2003, Additional history exists Pap Smear 2024 DTaP/Tdap/Td Vaccines (7 - Td or Tdap) 12/29/2024 12/29/2014, 05/11/2008, 12/13/2004, Additional history exists Dental Oral Exam 05/05/2025 11/04/2024, 08/2021, 03/07/2017 Dental Prophylaxis 05/05/2025 11/04/2024, 0 02/15/2021, 03/07/2017 COVID-19 Vaccine ( season) 2025 10/20/2021, 02/28/2021, 02/07/2021 Influenza Vaccine (#1) 2025 , 07/19/2022, 07/14/2020, Additional history exists Dental X-Ray: Bitewings 11/05/2025 11/04/19, 07/10/2024, 02/15/2021, Additional history exists Depression Monitoring 12/20/2025 06/22/2025, 025 Disability Screening 06/22/2026 06/22/2025 Tobacco Screening 09/21/2026 09/21/2025 SDOH Screening 09/25/2026 09/25/2025 Dental X-Ray: Full Mouth 11/05/2027 025, 10/29/2024, 08/12/2024, Additional history exists Lipid Panel 07/31/2029 07/31/2024, 07/08, 07/15/2020 Zoster Vaccines (1 of 2) 2053 RSV Patients and Patients Aged 60 years or older (1 - 1-dose 75+ series) 2078 Hepatitis B Vaccines Completed 01/15/2004, 2003, 2003, Additional history exists HIB Vaccines Completed 12/13/2004, 06/2004, 2003, Additional history exists IPV Vaccines Completed 05/11/2008, 06/2004, 2003, Additional history exists Hepatitis A Vaccines Completed 07/26/2010, 05/11/20 08 HPV Vaccines Completed 07/06/2015, 02/06, 12/29/2014 Meningococcal Vaccine Completed 12/08/2019, 015 RSV under 20 months Aged Out No longe r eligible based on patient's age to complete this topic Rotavirus Vaccines Aged Out No longer eligible based on patient's age to complete this topic Procedures Procedure Name Priority Date/Time Associated Diagnosis Comments CASE PRESENTATION, DETAILED AND EXTENSIVE TREATMENT PLANNING Routine 09/21/2025 8:00 AM EST 20 RETREATMENT OF PREVIOUS ROOT CANAL THERAPY - PREMOLAR Routine 09/21/2025 8:00 AM EST CASE PRESENTATION, DETAILED AND EXTENSIVE TREATMENT PLANNING Routine 08/17/2025 8:00 AM EST 2 ENDODONTIC THERAPY, MOLAR TOOTH Routine 08/17/2025 8:00 AM EST CASE PRESENTATION, DETAILED AND EXTENSIVE TREATMENT PLANNING Routine 08/10/2025 8:00 AM EST 2 ENDO - CLEAN AND SHAPE Routine 08/10/2025 8:00 AM EST CASE PRESENTATION, DETAILED AND EXTENSIVE TREATMENT PLANNING Routine 08/03/2025 8:00 AM EDT 31 ENDODONTIC THERAPY, MOLAR TOOTH Routine 08/03/2025 8:00 AM EDT CASE PRESENTATION, DETAILED AND EXTENSIVE TREATMENT PLANNING Routine 07/06/2025 10:30 AM EDT 31 ENDO - CLEAN AND SHAPE Routine 07/06/2025 10:30 AM EDT PROPHYLAXIS - ADULT Routine 11/04/2024 8 :00 AM EST INTRAORAL - COMPLETE SERIES OF RADIOGRAPHIC IMAGES Routine 11/04/2024 8:00 AM EST PERIODIC ORAL EVALUATION - ESTABLISHED PATIENT Routine 11/04/2024 8:00 AM EST LIPID PANEL, STANDARD Routine 07/31/2024 3:15 PM EDT Health care maintenance from Last 3 Months or Most Recently Relevant to Health Maintenance Results * Lipid Panel, Standard (07/31/2024 3:15 PM EDT) Triglycerides 129 <150 mg/dL [facility] Comment:Desirable Triglyceri de: less than 150 mg/dLBorderline High Triglyceride 150-199 mg/dLHigh Triglyceride: 200-499 mg/dLVery High Triglyceride: greater than or equal to 5OO mg/dL Cholesterol 157 <200 mg/dL [facility] Comment:Desirable Cholestero l: less than 200 mg/dLBorderline High Cholesterol: 200-239 mg/dLHigh Cholesterol: greater than 239 mg/dL LDL Cholesterol Calculated 86 <100 mg/dL [facility] Comment:Desirable LDL: less than 100 mg/dLNear Optimal/Above Optimal LDL: 110- 129 mg/dLBorderline High LDL: 130-159 mg/dLHigh LDL: 160-189 mg/dLVery High LDL: greater than or equal to 190 mg/dL HDL Cholesterol 46 >40 mg/dL [facility] Comment:Desirable HDL: great er than 40 mg/dL Note: This HDL assay may give artificially low results in patients with liver disease. Blood Venous blood specimen / Unknown 07/31/2024 3:15 PM EDT 07/31/2024 4:56 PM EDT us Jessica Allen COMMODITIES REQUIREMENTS ANALYST LAB BLOOD ORDERABLES Final Resul t [facility] [address] [place] [phone] from Last 3 Months or Most Recently Relevant to Health Maintenance Insurance [facility] C3 [place] STAND ADULT DENTAL - HSN FULL (MEDICAID) Care Teams Cat Wagon Operator Relationship Specialty Start Date End Date Kait Miner FNP [address] [place] [address] PCP - General Family Medicine 06/04/22 Tammi Davis RN [address] [place] [address] Registered Nurse Family Medicine 07/24/25 Minerva Abreu 07/24/25
== END 2025-09-29 09:36 | disposition home or self-care (01) ==
LOC: HO.ENCR 08:50
PROVIDERS: Visit Provider Student in an Organized Health Care Education/Training Program
DX: E24.9 Cushing's syndrome, unspecified (principal); E28.2 Polycystic ovarian syndrome
CPT/HCPCS: 99205

== ENCOUNTER → 2025-09-29 08:49 | Outpatient (BNVA) | payer MEDICAID, SELFPAY | PROVIDERS: Visit Provider Student in an Organized Health Care Education/Training Program | DX: E28.2 Polycystic ovarian syndrome (principal); E24.9 Cushing's syndrome, unspecified; L68.0 Hirsutism | CPT/HCPCS: 99202 ==